=== PATIENT | female | born 1980 | race African-American/Black ===

== ENCOUNTER 2025-01-21 19:16 | Observation (INO) | payer MEDICARE, MEDICAID, SELFPAY ==
--- NOTE | ~2025-01-21 | CT_ITS ---
EXAMINATION: CT abdomen pelvis w con DATE: 01/21/2025 21:21 INDICATION: Abdominal pain. TECHNIQUE: Computed tomography (CT) of the abdomen and pelvis was performed with 100 cc contrast intravenous contrast. Automated exposure control and iterative reconstruction technique were employed. The dose-length product was 987.59 mGy-cm. COMPARISON: None. FINDINGS: Lung bases do not show acute findings. No focal lesions of liver and spleen. Gallbladder, bile ducts, pancreas do not show acute findings. Kidneys do not show calculi are obstruction. No evidence of small bowel obstruction. Moderate fecal impaction of the proximal colon and the cecum. Appendix is noted in the pelvic position measuring less than 6 mm in diameter. No inflammatory changes. Bulky uterus. Suspected endometrial thickening. No adnexal mass or fluid collections are seen. No acute findings of lumbar spine. Severe degenerative disc disease at L5-S1 level. Suspected disc herniation to the left of the midline. IMPRESSION: 1. No acute findings in the upper abdomen and pelvis. Mild fecal impaction of proximal colon. 2. Bulky uterus with endometrial thickening suspected. Please correlate with clinical history and possible pelvic ultrasound. 3. Significant degenerative disc disease at L5-S1 level with possible disc protrusion. Reviewed, dictated and finalized at location T. ESTATE INVESTMENT ANALYST IMPRESSION: 1. No acute findings in the upper abdomen and pelvis. Mild fecal impaction of p roximal colon. 2. Bulky uterus with endometrial thickening suspected. Please correlate with cl inical history and possible pelvic ultrasound. 3. Significant degenerative disc disease at L5-S1 level with possible disc prot rusion.
[2025-01-21 19:23] VITALS: BP 146/95; PULSE 112; RESP 18; TEMP 36.3; O2SAT 99
[2025-01-21 19:52] LABS: Add Urine Microscopic? NO; Appearance Urine Clear (Clear); Glucose Urine UA Negative (Negative); Leukocyte Esterase Ur Negative LEU/UL (Negative); Nitrate Urine Negative (Negative); Specific Grav Ur 1.028 (1.001-1.035)
[2025-01-21 20:05] LABS: BEDSIDEPREGUCG Negative (Negative)
[2025-01-21 20:09] LABS: Hematocrit 39.3 % (37.0-47.0); Hemoglobin 12.9 g/dL (12.0-15.0); Immature Granulocyte Percent A 0.4 % (0-0.5); Lymphocytes Absolute Auto 1.84 K/mm3 (0.9-3.2); Mean Corpuscular HGB Conc 32.8 g/dl (32-36); Mean Corpuscular Hemoglobin 27.6 pg (26-34); Mean Corpuscular Volume 84.0 fl (80-100); Nucleated Red Blood Cells Absolute Auto 0.000 K/mm3 (0.0-0.012); Nucleated Red Blood Cells Perc 0.0 % (0.0-0.2); Platelet Count Result 221 k/mm3 (150-375); Red Blood Count 4.68 M/mm3 (4.2-5.4); White Blood Count 11.3 K/mm3 (4.5-10.0)
[2025-01-21 20:22] LABS: Alanine Aminotransferase 23 U/L (6-35); Albumin Level 4.5 g/dL (3.5-5.1); Alkaline Phosphatase 67 U/L (38-126); Anion Gap 5 mmol/L (4-12); Aspartate Amino Transferase 28 U/L (14-36); Bilirubin,Total 0.4 mg/dL (0.2-1.3); Blood Urea Nitrogen 19 mg/dL (7-17); Calcium 9.1 mg/dL (8.4-10.2); Carbon Dioxide 23 mmol/L (22-30); Chloride 104 mmol/L (98-107); Estimated CRCL calculation 94 ml/min; Estimated Glomerular Filt Rate > 60; Glucose 91 mg/dL (65-110); Lipase 97 U/L (23-300); Potassium 4.1 mmol/L (3.4-5.0); Sodium 132 mmol/L (137-145); Total Protein 8.1 g/dL (6.3-8.2)
--- NOTE | 2025-01-21 20:24 | ED_ITS ---
HPI - Abdominal Pain General Chief Complaint: Abdominal Pain Stated Complaint: Abd Pain/Pelvic pain/Vaginal bleeding Time Seen by Provider: 01/21/25 20:14 Source: patient Mode of arrival: ambulatory Limitations: no limitations History of Present Illness HPI narrative: Patient is a 44-year-old female presents to the emergency department complaining abdominal pain, nausea, vaginal bleeding. Patient notes she started to have abdominal pain in the suprapubic and left lower quadrant region started around 930 this morning, was overall constant for a few hours, seems to be letting up and then returning in this evening, admits to associated nausea, denies any history is pain in the past. That is Sunday she was having intercourse and started to have a lot of vaginal bleeding with that and passed blood clots. The vaginal bleeding still present but seems to be much improved over the past 2 days with small amounts. Patient notes her last menstrual period was at the end of December and she is supposed to have any vaginal bleeding or of this time has she usually gets her menses once a month. Patient also admits to being constipated. Patient admits to seeing a doctor [facility], last was back in 15 years ago and had a , notes that she has been having workup under uterus is there is a scar and possible opening there. Denies any history of any sexually transmitted infections. Related Data Allergies Allergy/AdvReac Type Severity Reaction Status Date / Time Penicillins Allergy Intermediate Rash Verified 01/21/25 20:30 Review of Systems 2 Review of Systems: A 10 system review of systems was completed on the patient and is negative except for what is stated in the HPI. Nursing and ancillary documentation was reviewed. Exam 2 Narrative: CONST: No acute distress. Well nourished. HENMT: Head is normocephalic and atraumatic. Moist mucous membranes. No posterior oropharynx erythema. EYES: No scleral icterus. No conjunctival injection or pallor. PERRL. NECK: No meningeal signs. RESP: Able to speak in full sentences. Normal respiratory effort. CTAB. CARDIO: Borderline tachycardic rate. Regular rhythm. 2+ DP and radial pulses bilaterally. GI: Nondistended. mild tenderness palpation in the suprapubic and left lower quadrant and right lower quadrant. No rebound or guarding or rigidity. Soft. : No CVA tenderness to palpation. SKIN: No rashes or lesions noted on exposed skin. NEURO: Oriented x3. Moves all extremities. EXTREM/MSK/BACK: No pedal edema. PSYCH: Normal affect. Course Vital Signs Vital signs: Vital Signs Temperature 97.4 F L 01/21/25 19:23 Pulse Rate 112 H 01/21/25 19:23 Respiratory Rate 18 01/21/25 19:23 Blood Pressure 146/95 H 01/21/25 19:23 Pulse Oximetry 99 01/21/25 19:23 Oxygen Delivery Room Air 01/21/25 19:23 Temperature 97.4 F L 01/21/25 19:23 Pulse Rate 109 H 01/21/25 20:32 Respiratory Rate 18 01/21/25 20:32 Blood Pressure 152/95 H 01/21/25 20:32 Pulse Oximetry 100 01/21/25 20:32 Oxygen Delivery Room Air 01/21/25 19:23 [facility] Narrative Medical decision making narrative: Patient presents with the above complaint. Initial vitals are remarkable for Tachycardia. Physical examination as noted above. Plan discussed: laboratory analysis, imaging. Patient ordered IVF, analgesia, antiemetic, continuous cardiac monitoring, continuous pulse oximetry. I spoke with Gynecology on-call Dr. Anthony who notes to start the patient on IV antibiotics, admit under him. Differential Diagnosis Differential Diagnosis: ovarian cyst, ovarian torsion, UTI, ureterolithiasis, endometritis, pelvic inflammatory disease, ectopic , constipation, diverticulitis, bowel obstruction, pancreatitis, Metabolic derangement, electrolyte derangement. Lab Data [facility] Lab Attestation statement: I personally reviewed the patient's lab results. Lab results narrative: CBC reveals a white blood cell count 11.3. Coags are within normal limits. Comprehensive metabolic panel reveals sodium 132, BUN of 19. TSH is 2.07. Serum HCG is negative. CRP is 2.4. Magnesium is 1.9. Lactic acid is 1.0. Lipase 97. Urinalysis is without any significant abnormalities. test is negative. Trichomonas vaginalis is not detected. 01/21/25 20:02 01/21/25 20:02 Labs: Lab Results 01/21/25 01/21/25 01/21/25 Range/Units 19:45 20:01 20:02 WBC 11.3 H (4.5-10.0) K/mm3 RBC 4.68 (4.2-5.4) M/mm3 Hgb 12.9 (12.0-15.0) g/dL Hct 39.3 (37.0-47.0) % MCV 84.0 (80-100) fl MCH 27.6 (26-34) pg MCHC 32.8 (32-36) g/dl RDW 12.9 (11.5-14.5) % Plt Count 221 (150-375) k/mm3 MPV 11.2 H (7.4-10.4) fl Immature Gran % (Auto) 0.4 (0-0.5) % Neut % (Auto) 77.0 H (45.5-73.1) % Lymph % (Auto) 16.3 L (18.3-44.2) % Bacon % (Auto) 5.9 (2.6-8.5) % Eos % (Auto) 0.2 (0-4.4) % Baso % (Auto) 0.2 (0.2-1.2) % Lymph # (Auto) 1.84 (0.9-3.2) K/mm3 Bacon # (Auto) 0.7 H (0.1-0.6) K/mm3 Eos # (Auto) 0.0 (0-0.3) K/mm3 Baso # (Auto) 0.0 (0.0-0.1) K/mm3 Abs Immat Gran (auto) 0.05 H (0.00-0.031) K/mm3 Absolute Neuts (auto) 8.7 H (1.3-6.7) K/mm3 Absolute Nucleated RBC 0.000 (0.0-0.012) K/mm3 Nucleated RBC % 0.0 (0.0-0.2) % PT 12.3 (11.1-14.7) Seconds INR 0.9 APTT 25.4 (22.3-36.8) Seconds Sodium 132 L (137-145) mmol/L Potassium 4.1 (3.4-5.0) mmol/L Chloride 104 (98-107) mmol/L Carbon Dioxide 23 (22-30) mmol/L Anion Gap 5 (4-12) mmol/L BUN 19 H (7-17) mg/dL Creatinine 0.77 (0.7-1.0) mg/dL Estim Creat Clear Calc 94 ml/min Estimated GFR > 60 (59 - ) Glucose 91 (65-110) mg/dL Lactic Acid (0.7-2.0) mmol/L Calcium 9.1 (8.4-10.2) mg/dL Magnesium 1.9 (1.6-2.3) mg/dL Total Bilirubin 0.4 (0.2-1.3) mg/dL AST 28 (14-36) U/L ALT 23 (6-35) U/L Alkaline Phosphatase 67 (38-126) U/L C-Reactive Protein 2.4 H (<1.0) mg/dL Total Protein 8.1 (6.3-8.2) g/dL Albumin 4.5 (3.5-5.1) g/dL Lipase 97 (23-300) U/L TSH (Reflex) 2.070 (0.465-4.68) uIU/mL Serum HCG, Qual Negative Urine Color Yellow (Yellow) Urine Appearance Clear (Clear) Urine pH 8.0 (5.0-9.0) Ur Specific [place] 1.028 (1.001-1.035) Urine Protein Negative (Negative) mg/dL Urine Glucose (UA) Negative (Negative) mg/dL Urine Ketones Negative (Negative) mg/dL Ur Blood (Man) Negative (Negative) Urine Nitrate Negative (Negative) Urine Bilirubin Negative (Negative) Urine Urobilinogen 1.0 (<2.0) mg/dL Leukocyte Esterase Rfl Negative (Negative) HUBER/UL POC Urine HCG, Qual (Negative) C. trachomatis (PCR) Pending N. gonorrhoeae (PCR) Pending T. vaginalis (PCR) Not detected (NOT DETECTE) Blood Type Antibody Screen 01/21/25 01/21/25 Range/Units 20:03 20:49 WBC (4.5-10.0) K/mm3 RBC (4.2-5.4) M/mm3 Hgb (12.0-15.0) g/dL Hct (37.0-47.0) % MCV (80-100) fl MCH (26-34) pg MCHC (32-36) g/dl RDW (11.5-14.5) % Plt Count (150-375) k/mm3 MPV (7.4-10.4) fl Immature Gran % (Auto) (0-0.5) % Neut % (Auto) (45.5-73.1) % Lymph % (Auto) (18.3-44.2) % Bacon % (Auto) (2.6-8.5) % Eos % (Auto) (0-4.4) % Baso % (Auto) (0.2-1.2) % Lymph # (Auto) (0.9-3.2) K/mm3 Bacon # (Auto) (0.1-0.6) K/mm3 Eos # (Auto) (0-0.3) K/mm3 Baso # (Auto) (0.0-0.1) K/mm3 Abs Immat Gran (auto) (0.00-0.031) K/mm3 Absolute Neuts (auto) (1.3-6.7) K/mm3 Absolute Nucleated RBC (0.0-0.012) K/mm3 Nucleated RBC % (0.0-0.2) % PT (11.1-14.7) Seconds INR APTT (22.3-36.8) Seconds Sodium (137-145) mmol/L Potassium (3.4-5.0) mmol/L Chloride (98-107) mmol/L Carbon Dioxide (22-30) mmol/L Anion Gap (4-12) mmol/L BUN (7-17) mg/dL Creatinine (0.7-1.0) mg/dL Estim Creat Clear Calc ml/min Estimated GFR (59 - ) Glucose (65-110) mg/dL Lactic Acid 1.0 (0.7-2.0) mmol/L Calcium (8.4-10.2) mg/dL Magnesium (1.6-2.3) mg/dL Total Bilirubin (0.2-1.3) mg/dL AST (14-36) U/L ALT (6-35) U/L Alkaline Phosphatase (38-126) U/L C-Reactive Protein (<1.0) mg/dL Total Protein (6.3-8.2) g/dL Albumin (3.5-5.1) g/dL Lipase (23-300) U/L TSH (Reflex) (0.465-4.68) uIU/mL Serum HCG, Qual Urine Color (Yellow) Urine Appearance (Clear) Urine pH (5.0-9.0) Ur Specific [place] (1.001-1.035) Urine Protein (Negative) mg/dL Urine Glucose (UA) (Negative) mg/dL Urine Ketones (Negative) mg/dL Ur Blood (Man) (Negative) Urine Nitrate (Negative) Urine Bilirubin (Negative) Urine Urobilinogen (<2.0) mg/dL Leukocyte Esterase Rfl (Negative) HUBER/UL POC Urine HCG, Qual Negative (Negative) C. trachomatis (PCR) N. gonorrhoeae (PCR) T. vaginalis (PCR) (NOT DETECTE) Blood Type B Positive Antibody Screen Negative Imaging Data Radiologist's impression: ITS Impressions Abdomen/Pelvis CT 01/21/25 21:22 IMPRESSION: 1. No acute findings in the upper abdomen and pelvis. Mild fecal impaction of proximal colon. 2. Bulky uterus with endometrial thickening suspected. Please correlate with clinical history and possible pelvic ultrasound. 3. Significant degenerative disc disease at L5-S1 level with possible disc protrusion. ECG Data EKG #1: Attestation: I personally reviewed and interpreted this ECG as follows: ECG completion date: 01/21/25 ECG completion time: 21:06 Interpretation: Rate of 101, rhythm is sinus tachycardia with short OK interval, no ST elevations or depressions, no old EKG on file for comparison. Discharge Plan Discharge Clinical Impression: Sepsis, Pelvic pain, Vaginal bleeding Patient Disposition: Still a Patient Condition: Stable Instructions: Antibiotic Form Patient Language: Uzbek Follow-up/Referrals: PHYSICIAN NOT ON STAFF,NONSTAFF [Primary Care Provider] Time of Disposition: 22:14
--- NOTE | 2025-01-21 20:25 | ECG_ITS ---
Test Date: 2025-01-21 21:06:40 Measurements Intervals [place] Rate: 101 P: 28 AR: 112 QRS: 31 QRSD: 77 T: 43 QT: 352 QTc: 457 Interpretive Statements SINUS TACHYCARDIA WITH SHORT AR INTERVAL EARLY PRECORDIAL R/S TRANSITION BORDERLINE ECG No previous ECG available for comparison Electronically Signed On 01-22-2025 06:09:51 [employer] by Desean Choudhury D.O.
[2025-01-21 20:32] VITALS: BP 152/95; PULSE 109; RESP 18; O2SAT 100
[2025-01-21 20:46] LABS: SPREG INTERNAL CONTROL Positive; Serum Qual hCG Negative
[2025-01-21 20:51] LABS: CRP 2.4 mg/dL (<1.0); Magnesium 1.9 mg/dL (1.6-2.3)
[2025-01-21] MEDS: ONDANSETRON INJ 4 MG/2 ML VIAL IV PUSH (20:56)
[2025-01-21] MEDS: MORPHINE SULFATE (*CRX) 4 MG/ML INJ IV PUSH (20:56)
[2025-01-21] MEDS: SODIUM CHLORIDE 0.9% IV 1,000 ML 999 ML IV CONT ×2 (20:56)
[2025-01-21] MEDS: SODIUM CHLORIDE 0.9% IV 500 ML 999 ML IV CONT (20:56)
[2025-01-21 21:05] LABS: INR 0.9; Prothrombin Time 12.3 Seconds (11.1-14.7)
[2025-01-21 21:06] LABS: Partial Thromboplastin Time 25.4 Seconds (22.3-36.8)
[2025-01-21 21:21] LABS: Thyroid Stimulating Hormone Reflex 2.070 uIU/mL (0.465-4.68)
--- OUTSIDE RECORDS SUMMARY | 2025-01-21 21:21 | XMS_ITS | Clinical Summary ---
Author Organization [facility] Address [address] [place] [address] Care Team Providers Care Online Merchandiser Name Role Phone Sola López SMALL MACHINE BINDERY OPERATOR-HAT LINER Primary Care Provider + Source Comments [facility],non-owned Affiliates and Associated Physician Practices is amultiple site organization consisting of ambulatory clinics and hospital sitesin [place], [place], [place] and [place]. This disclosure is being madepursuant to the Care Everywhere program and may not contain all information available regarding this patient. Last updated 17.[facility] Allergies No known active allergies Social History Tobacco Use Types Packs/Day Years Used Date Smoking Tobacco: Never Assessed Comments Unknown Sex and Gender Information Value Date Recorded Sex Assigned at Not on file Legal Sex Female 6:11 PM CUFF SETTER Gender Identity Not on file Sexual Orientation Not on file Plan of Treatment Health Maintenance Due Date Last Done Comments LIPID TESTING 1982 MAMMOGRAM 1982 HIV SCREENING 1997 HEPATITIS C SCREENING 11/04/2000 DTAP/TDAP/TD VACCINES (1 - Tdap) 2001 HEPATITIS B VACCINE (1 of 3 - 19+ 3-dose series) 2001 PAP SMEAR 11/10/2003 HPV VACCINE (1 - 3-dose SCDM series) 2009 DEPRESSION SCREENING 02/13/2024 MEDICARE AWV CALENDAR YEAR 2024 COVID-19 VACCINE (1 - 2024-2 6 season) 2024 INFLUENZA VACCINE (#1) 2024 ZOSTER VACCINE (1 of 2) 2032 HIB VACCINE Aged Out No longer eligi ble based on patient's age to complete this topic MENINGOCOCCAL (Group B) VACC INE SHARED DECISION-MAKING Aged Out No longer eligibl e based on patient's age to complete this topic MENINGOCOCCAL GROUPS A/C/Y/W VACCINE Aged Out No longer eligible b ased on patient's age to complete this topic PNEUMOCOCCAL VACCINE Aged Out No long er eligible based on patient's age to complete this topic Insurance MEDICARE MEDICAID - OUT OF [facility] [place] [address] MEDICARE MEDICAID - [place] [facility] Care Teams Online Merchandiser Relationship Specialty Start Date End Date Sola López APRN-TRACEE PCP - General Nurse Practitioner 04/06/20
--- OUTSIDE RECORDS SUMMARY | 2025-01-21 21:21 | XMS_ITS | Encounter Summary ---
Author Organization [facility] Address [address] [place] [address] Phone Care Team Providers Care Baffle Mounter Name Role Phone Citlalli Santana NP Primary Care Provider [phone] Stephanie Grimaldo MD Unavailable [phone] Encounter Details Date Type Department Care Team (Latest Contact Info) Description 12/25/2024 Results Follow-Up [facility] Medicine Reproductive Endocrinology [address] [address] Digna Jimenez MD [address] [address] MRI Pelvis W WO Contrast Social History Tobacco Use Types Packs/Day Years Used Date Smoking Tobacco: Former Cigars Smokeless Tobacco: Never Alcohol Use Standard Drinks/Week Comments Yes 0 (1 standard drink = 0.6 oz pur e alcohol) occasionally Humiliation, Afraid, Rape, and Kick questionnair e Answer Date Recorded Within the last year, have y ou been afraid of your partner or ex-partner? No 02/11/2024 Within the last year, have y ou been humiliated or emotionally abused in other ways by your partner or ex-partner? No Within the last year, have y ou been kicked, hit, slapped, or otherwise physically hurt by your partner or ex-partner? No 02/11/2024 Within the last year, have y ou been raped or forced to have any kind of sexual activity by your partner or ex-partner? No 02/11/2024 AUDIT-C Answer Date Recorded Q1: How often do you have a drink containing alc ohol? 2-4 times a month 02/11/2024 Q2: How many drinks containi ng alcohol do you have on a typical day when you are drinking? 3 or 4 02/11/2024 Q3: How often do you have si x or more drinks on one occasion? Monthly 02/11/2024 PHQ-2 Answer Date Recorded PHQ-2 Total Score 0 02/11/2024 Hunger Vital Sign Answer Date Recorded Within the past 12 months, y ou worried that your food would run out before you got the money to buy more. Never true 09/03/19 25 Within the past 12 months, t he food you bought just didn't last and you didn't have money to get more. Never true 09/02/2024 Personal Safety Answer Date Recorded Have you ever been in or are you currently in a harmful physical or emotional relationship or is someone making you feel afraid or unsafe? Denies 12/04/2024 Comments No Sex and Gender Information Value Date Recorded Sex Assigned at Not on file Legal Sex Female 4:28 PM DIRECTOR OF GLOBAL SALES Gender Identity Female 03/20/2023 12:24 PM DIRECTOR OF GLOBAL SALES Sexual Orientation Straight 03/20/2023 12 :24 PM DIRECTOR OF GLOBAL SALES documented as of this encounter Plan of Treatment Upcoming Encounters Date Type Department Care Team (Latest Contact Info) Description 03/06/2025 12:13 PM DIRECTOR OF GLOBAL SALES Hospital Encounter [facility] [address] [place] [id number] Digna Jimenez MD [id number] [address] 03/06/2025 12:13 PM DIRECTOR OF GLOBAL SALES - 03/06/2025 2:07 PM DIRECTOR OF GLOBAL SALES Surgery [facility] [address] [place] [id number] Digna Jimenez MD [phone] [address] HYSTEROSCOPIC ISTHMOCELE REPAIR Scheduled Procedures Name Priority Associated Diagnoses Date/Ti me HYSTEROSCOPY OPERATIVE Abnormal uterine bleeding (AUB) 03/06/2025 12:13 PM DIRECTOR OF GLOBAL SALES EXAM UNDER ANESTHESIA Abnormal uterine bleeding (AUB) 03/06/2025 12:13 PM DIRECTOR OF GLOBAL SALES documented as of this encounter Visit Diagnoses Not on filedocumented in this encounter Care Teams Baffle Mounter Relationship Specialty Start Date End Date Citlalli Santana NP [address] [place] [address] PCP - General Grill Chef 09/30/24 Stephanie Grimaldo MD [address] JIMENEZ [address] [place], [place] [address] [address] Conference Director Obstetrics and Gynecology 09/30/24 documented as of this encounter
--- OUTSIDE RECORDS SUMMARY | 2025-01-21 21:21 | XMS_ITS | Clinical Summary ---
Author Organization [facility] Address [address] [place] [address] Care Team Providers Care Triage Registered Nurse Name Role Phone Citlalli Santana NP Primary Care Provider [phone] Stephanie Grimaldo MD Unavailable [phone] Allergies Active Allergy Reactions Criticality Noted Date Comments Amoxicillin Other (See comments) Low 09/23/2020 CHANGES IN VAGINAL pH Poison Alicia Extract Rash Medium 08/26/2021 Poison Sumac Extract Rash Medium 08/26/2021 Medications ibuprofen (ADVIL,MOTRIN) 600 mg tablet Take 1 tablet (600 mg total) by mouth every 6 (six) hours as needed for pain 100 tablet 09/29/19 23 Active iron sabino barth-FA-B-C# 12-succ 65 mg-65 mg -1,000 mcg (24) tablet Take by mouth Per patient daily Active vit 68-szug-hmniw-dha 27mg iron- 800 mcg-250 mg capsule Take by mouth Per patient daily Active folic acid (FOLVITE) 1 mg tablet Take 1 tablet (1 mg total) by mouth daily Active cholecalciferol (VITAMIN D-3) 5,000 unit capsule Take 1 capsule (5,000 Units total) by mouth daily Active ferrous sulfate 325 mg (65 mg of elemental iron) tabletIndications :Iron Deficiency Anemia Take 1 tablet (325 mg total) by mouth daily with breakfast 30 tablet 11 02/14/19 25 026 Active naproxen (NAPROSYN) 500 mg tablet Take 1 tablet (500 mg total) by mouth 2 (two) times a day as needed for pain Take with food. 30 tablet 12/05/19 25 Active levothyroxine (SYNTHROID) 25 mcg tablet Take 1 tablet (25 mcg total) by mouth display mechanic before breakfast 30 tablet 2 01/16/20 25 Active norethindrone (MICRONOR) 0.35 mg tabletIndications : Contraception Take 1 tablet (0.35 mg total) by mouth daily 28 tablet 5 01/16/20 25 026 Active progesterone (PROMETRIUM) 200 mg capsule TAKE 1 CAPSULE BY MOUTH DAILY AT BEDTIME 01/03/20 22 025 Discontinued Active Problems Problem Noted Date Diagnosed Date Abnormal uterine bleeding (AUB) 01/15/2025 Hair loss 02/11/2024 Assessment & Plan (02/11/2024 11:47 AM ART MODEL): New problem: Diffuse, but right>left Had tsh with pcp recently To tyrese, cbc, iron studies To biotin Encounter for preconception consultation 023 Overview (01/15/2023): She is on mvi. No family history of neural tube defects or other defects. The patient was encouraged to be a healthy weight. The patient was encouraged to be in a healthy relationship She was encouraged to not use tobacco or marijuana. Varicella- she had chicken pox. To varicella and rubella titers- she is not interested in vaccination even if she was found to be nonimmune after discussion of what could happen if she was to get it during . Carrier screening discussed she would like to do. To routine health maintenance labs- she is following with pcp. Chol is high. Blood glucose is good. Assessment & Plan (02/11/2024 11:49 AM ART MODEL): To go back to [facility]. Will refer to [facility] Will hold on labs and usg as I am sure they will do it there. Assessment & Plan (01/15/2023 9:42 AM ART MODEL): She is on mvi. No family history of neural tube defects or other defects. The patient was encouraged to be a healthy weight. The patient was encouraged to be in a healthy relationship She was encouraged to not use tobacco or marijuana. Varicella- she had chicken pox. To varicella and rubella titers- she is not interested in vaccination even if she was found to be nonimmune after discussion of what could happen if she was to get it during . Carrier screening discussed she would like to do. To routine health maintenance labs- she is following with pcp. Chol is high. Blood glucose is good. Well woman exam 01/15/2023 Overview (02/11/2024): Lab: Pap:all normal Labs with pcp- due [place]:due. She wants to postpone as she is afraid of it causing problems. Colonoscopy: BMD: Assessment & Plan (02/11/2024 11:50 AM ART MODEL): Pap done. RTO 12m. I will send the results to the portal. If she has not heard in a week, to call the office. To rpr, hep b and c and HIV Assessment & Plan (01/15/2023 5:24 PM ART MODEL): Pap done. RTO 12m. I will send the results to the portal. If she has not heard in a week, to call the office. DUB (dysfunctional uterine bleeding) 01/15/2023 Assessment & Plan (01/15/2023 5:25 PM ART MODEL): To cbc She may be a candidate for lysteda. Resolved Problems Problem Noted Date Diagnosed Date Resolved Date Poison alicia dermatitis 08/26/20212022 Encounters Date Type Department Care Team Description 01/15/2025 9:50 AM ART MODEL Telemedicine [facility] Reproductive Endocrinology [address] [place] [address] [place] [phone] Digna Jimenez MD Dysmenorrhea (Primary Dx) 12/25/2024 Results Follow-Up [facility] Reproductive Endocrinology [address] [place] [phone] Digna Jimenez MD MRI Pelvis W WO Contrast 12/19/2024 8:45 AM ART MODEL - 12/19/2024 11:59 PM ART MODEL Hospital Encounter [facility] [address] [place] [address] Encounter for fertility testing Discharge Disposition: Discharge to home or self care 12/18/2024 6:35 PM ART MODEL - 12/18/2024 11:59 PM ART MODEL Hospital Encounter [facility] [address] [place] [phone] Pelvic and perineal pain Discharge Disposition: Discharge to home or self care 12/11/2024 Telephone [facility] Medicine Reproductive Endocrinology [address] [place] [address] [place] [phone] Digna Jimenez MD MG/cd 1 G scheduled/doxy to be sent 12/04/2024 4:20 PM CDT - 12/04/2024 4:26 PM CDT Emergency [facility] Emergency Department [address] [place] [address] Richi Frye MD Strain of lumbar region, initial encounter (Primary Dx); Degeneration of intervertebral disc of lumbar region, unspecified whether pain present; Left ovarian cyst Discharge Disposition: Discharge to home or self care 11/28/2024 1:04 PM CDT - 11/28/2024 11:59 PM CDT Hospital Encounter [address] [address] Recurrent loss without current ; Polycystic ovaries; Personal history of other endocrine, nutritional and metabolic disease Discharge Disposition: Discharge to home or self care 11/28/2024 11:50 AM CDT Procedure visit [facility] Medicine Reproductive Endocrinology [address] [place] [address] [place] [phone] Digna Jimenez MD Encounter for fertility testing (Primary Dx); Pelvic and perineal pain 11/28/2024 11:30 AM CDT Ancillary Procedure [facility] Medicine Obstetrics and Gynecology [address] [place] [address] [address]rd Floor [address] [place] [phone] Encounter for fertility testing 11/28/2024 11:20 AM CDT Clinical Support [facility] Reproductive Endocrinology Lab [address] [place] [phone] Polycystic ovaries (Primary Dx); Recurrent loss without current ; Fertility testing; Personal history of other endocrine, nutritional and metabolic disease 11/18/2024 Telephone [facility] Reproductive Endocrinology [address] [place] [address] [place] [phone] Digna Jimenez MD MG/cd1 10-6 11/12/2024 3:10 PM CDT Telemedicine [facility] Reproductive Endocrinology [address] [place] [address] [place] [phone] Digna Jimenez MD Encounter for fertility testing (Primary Dx) from Last 3 Months Surgical History Surgery Date Site/Laterality Comments SECTION 11/13/2006 Emergency TUBAL LIGATION 02/12/2009 - 02/11/2010 SECTION 08/12/2009 Repeat OTHER SURGICAL HISTORY 10/28/2019 BTL reversal Medical History Medical History Date Comments Hyperlipidemia Asthma Uterine fibroids affecting Family History Medical History Relation Name Comments Hypertension Father Lung cancer Father stage 4 primary Prostate cancer Father no mets Diabetes Maternal Grandmother Hypertension Mother Stomach cancer Paternal Grandmother Cancer Neg Hx No colon, breas t or glass washer and carrier cancer cmt dad as above 02/01/24 Relation Name Status Comments Father Maternal Grandmother Mother Paternal Grandmother Social History Tobacco Use Types Packs/Day Years Used Date Smoking Tobacco: Former Cigars Smokeless Tobacco: Never Tobacco Cessation:Counseling Given: Not Answered Alcohol Use Standard Drinks/Week Comments Yes 0 [...] on file Legal Sex Female 4:28 PM ART MODEL Gender Identity Female 03/20/2023 12:24 PM ART MODEL Sexual Orientation Straight 03/20/2023 12 :24 PM ART MODEL Obstetrics History Para Term AB IAB SAB Ectopic Multiple Livin g Live Births 4 2 2 2 2 2 2 Date Outcome GA Total Labor Labor/2nd/3rd Weight Sex Type Anes PTL Neha A1 A5 Name Clin SAB SAB 007 Term 2.722 kg (6 lb) M C-Sec tion Epidur al N Livin g Delivery Location:Other 010 Term 3.175 kg (7 lb) F C-Sec tion Epidur al Livin g Delivery Location:Other Last Filed Vital Signs Vital Sign Reading Time Taken Comments Blood Pressure 137/94 12/04/2024 3:49 PM CDT Pulse 64 12/04/2024 3:49 PM CDT Temperature 36.7 C (98 F) 12/04/2024 1:04 PM CDT Respiratory Rate 18 12/04/2024 1:04 PM CDT Oxygen Saturation 97% 12/04/2024 3:49 PM CDT Inhaled Oxygen Concentration - - Weight 97.5 kg (215 lb) 12/18/2024 7:25 PM ART MODEL Height 162.6 cm (5' 4) 12/18/2024 7:25 PM ART MODEL Body Mass Index 36.9 12/18/2024 7:25 PM ART MODEL Plan of Treatment Upcoming Encounters Date Type Department Care Team (Latest Contact Info) Description 03/06/2025 12:13 PM ART MODEL Hospital Encounter [facility] Operating Room [address] [place] [phone] Digna Jimenez MD [address] [phone] 03/06/2025 12:13 PM ART MODEL - 03/06/2025 2:07 PM ART MODEL Surgery [facility] Operating Room [address] [place] [address] Digna Jimenez MD [address] [id number] [place], [place] [phone] HYSTEROSCOPIC ISTHMOCELE REPAIR Scheduled Procedures Name Priority Associated Diagnoses Date/Ti me HYSTEROSCOPY OPERATIVE Abnormal uterine bleeding (AUB) 03/06/2025 12:13 PM ART MODEL EXAM UNDER ANESTHESIA Abnormal uterine bleeding (AUB) 03/06/2025 12:13 PM ART MODEL Health Maintenance Due Date Last Done Comments Breast Cancer Screening-Mammogram 1982 DTaP/Tdap/Td Vaccine (1 - Tdap) 1993 Varicella Vaccines (1 of 2 - 13+ 2-dose series) 11/10/1995 Hepatitis B Screening 2000 HPV Vaccines (1 - 3-dose SCD M series) 2009 Influenza Vaccine (#1) 2024 04/27/2022 Cervical Cancer Screening 02/10/20252023, 02/11/2024, 01/15/2023 Depression Screening 02/10/2025 02/11/2024, 01/15/2023 Regular Well Visit/Exam 18-64 02/10/2025 02/11/2024 Hepatitis C Screening Completed 02/11/2024 Pneumococcal vaccine <65 Aged Out No longer eligible based on patient's age to complete this topic Goals Goal Patient Goal Type Associated Problems Recent Progress Patient-Stated? Author Autogenera yesica Goal Care Plan Autogenerated Problem No Link, Dorie Christopher, Dania Procedures Procedure Name Priority Date/Time Associated Diagnosis Comments HYSTEROSALPINGOGRAM Schedule Routine, Read Routine (OP Routine) 12/19/2024 9:50 AM ART MODEL Encounter for fertility testing MRI PELVIS W WO CONTRAST Schedule Routine, Read Routine (OP Routine) 12/18/2024 8:23 PM ART MODEL Pelvic and perineal pain POCT HCG, URINE Routine 12/18/2024 7:[address] LUMBAR SPINE WO CONTRAST ED 12/04/2024 2:57 PM CDT SONOHYSTEROGRAM Routine 11/28/2024 1:25 PM CDT Encounter for fertility testing US SONOHYSTEROGRAPHY Schedule Routine, Read Routine (OP Routine) 11/28/2024 11:09 AM CDT Encounter for fertility testing HEMOGLOBIN A1C Routine 11/28/2024 10:55 AM CDT Polycystic ovaries Personal history of other endocrine, nutritional and metabolic disease THYROID PEROXIDASE ANTIBODY Routine 11/28/2024 10:55 AM CDT Polycystic ovaries CARDIOLIPIN ANTIBODY, IGG Routine 2024 10:55 AM CDT Recurrent loss without current CARDIOLIPIN ANTIBODY, IGM Routine 2024 10:55 AM CDT Recurrent loss without current BETA 2 GLYCOPROTEIN IGM AB Routine 11/28/2024 10:55 AM CDT Recurrent loss without current BETA 2 GLYCOPROTEIN IGG AB Routine 11/28/2024 10:55 AM CDT Recurrent loss without current LUPUS ANTICOAGULANT PANEL PLUS REFLEXES Routine 11/28/2024 10:55 AM CDT Recurrent loss without current POCT HCG, URINE, BY VISUAL COLOR Routine 11/28/2024 HEPATITIS C ANTIBODY Routine 02/11/2024 12:04 PM ART MODEL Screening for STDs (sexually transmitted diseases) HIGH RISK HPV DNA DETECTION WITH GENOTYPING Routine 02/11/2024 12:04 PM ART MODEL Well woman exam from Last 3 Months or Most Recently Relevant to Health Maintenance Results * FL Hysterosalpingogram (12/19/2024 9:50 AM ART MODEL) Anatomical Region Laterality Modality Body, Pelvis N/A Radio Fluoroscop y 12/19/2024 10:3 6 AM ART MODEL Impressions 12/19/2024 1:09 PM ART MODEL Non opacification left fallopian tube which may be due to spasm vs less likely occlusion. The radiology attending physician has personally reviewed this study, and had reviewed and/or edited this written report and agrees with it. Electronically signed by: Indiana Glasgow M.D. Narrative 12/19/2024 1:09 PM ART MODEL EXAMINATION: HYSTEROSALPINGOGRAM HISTORY: 44 year old woman, on day 9 of her menstrual cycle. Diagnostic evaluation of the fallopian tubes and uterine cavity. TECHNIQUE: Using sterile technique, a speculum was inserted into the vagina and the cervix swabbed with Betadine solution. A hysterocatheter was placed and Conray 60 was injected into the uterus. Fluoroscopic images of the pelvis were obtained. The patient tolerated the procedure well without complication. Dr. Indiana Glasgow M.D., the attending radiologist, was present from the beginning to the end of the procedure. FINDINGS: Endocervical canal: The endocervical canal is normal in appearance. Uterus: The uterus is anteverted. There are slight outpouchings in the anterior lower uterine body favored to represent postsurgical changes from previous sections. Fallopian tubes: The right fallopian tube is normal in contour and there is peritoneal spillage in the right fallopian tube. The left fallopian tube is not opacified. Procedure Note Indiana Glasgow MD - 12/19/2024 EXAMINATION: HYSTEROSALPINGOGRAM HISTORY: 44 year old woman, on day 9 of her menstrual cycle. Diagnostic evaluation of the fallopian tubes and uterine cavity. TECHNIQUE: Using sterile technique, a speculum was inserted into the vagina and the cervix swabbed with Betadine solution. A hysterocatheter was placed and Conray 60 was injected into the uterus. Fluoroscopic images of the pelvis were obtained. The patient tolerated the procedure well without complication. Dr. Indiana Glasgow M.D., the attending radiologist, was present from the beginning to the end of the procedure. FINDINGS: Endocervical canal: The endocervical canal is normal in appearance. Uterus: The uterus is anteverted. There are slight outpouchings in the anterior lower uterine body favored to represent postsurgical changes from previous sections. Fallopian tubes: The right fallopian tube is normal in contour and there is peritoneal spillage in the right fallopian tube. The left fallopian tube is not opacified. IMPRESSION: Non opacification left fallopian tube which may be due to spasm vs less likely occlusion. The radiology attending physician has personally reviewed this study, and had reviewed and/or edited this written report and agrees with it. Electronically signed by: Indiana Glasgow M.D. Digna Jimenez MD IMG FLUOROSCOPY PROCEDURES Final Result * MRI Pelvis W WO Contrast (12/18/2024 8:23 PM ART MODEL) Anatomical Region Laterality Modality Pelvis N/A Magnetic Resonan ce 12/19/2024 11:2 3 AM ART MODEL Impressions 12/19/2024 11:47 AM ART MODEL 1. Subserosal and intramural uterine fibroids. No findings concerning for endometriosis. 2. Adenomyosis of the uterus. Dictated by: Brit Benitez M.D. The radiology attending physician has personally reviewed this study, and had reviewed and/or edited this written report and agrees with it. Electronically signed by: Ashu Christopher M.D. Narrative 12/19/2024 11:47 AM ART MODEL EXAMINATION: MAGNETIC RESONANCE IMAGING OF THE PELVIS WITHOUT AND WITH CONTRAST HISTORY: 44-year-old female, scar defect, chronic pelvic pain, assess for endometriosis. TECHNIQUE: MR imaging of the pelvis was performed prior to and following administration of intravenous contrast. Protocol: Pelvis Contrast: Dotarem (gadoterate) 18 mL COMPARISON: No relevant comparison examination. FINDINGS: Reproductive Organs: Uterus is anteverted. The uterus is thickened with cystic lesions of its junctional zone, consistent with adenomyosis. There are superimposed T2-hypointense, enhancing masses in the uterine myometrium and subserosa, likely representing fibroids. There are at least five total masses. Example myometrial mass measures 1.5 x 1.1 cm (3:11), while example subserosal mass measures 3.3 x 2.7 cm (4:29). These masses demonstrate variable T1 signal without significant diffusion restriction. The bilateral ovaries are follicular. There is a hemorrhagic left ovarian lesion, likely a corpus luteum cyst (4:24, 5:18). There is a defect of anterior myometrium containing hemorrhagic product (7:23, 6:19), probably corresponding to Caesarean section defect. There are Nabothian cysts of the cervix. Bowel: No bowel abnormality. Bladder: Decompressed. Lymph nodes: No pathologic lymphadenopathy. Scattered bilateral inguinal lymph nodes measuring up to 1.0 cm Vasculature: No vascular involvement of masses as described above. Bones: No abnormal bony findings. Procedure Note Ashu Christopher MD PhD - 12/19/2024 EXAMINATION: MAGNETIC RESONANCE IMAGING OF THE PELVIS WITHOUT AND WITH CONTRAST HISTORY: 44-year-old female, scar defect, chronic pelvic pain, assess for endometriosis. TECHNIQUE: MR imaging of the pelvis was performed prior to and following administration of intravenous contrast. Protocol: Pelvis Contrast: Dotarem (gadoterate) 18 mL COMPARISON: No relevant comparison examination. FINDINGS: Reproductive Organs: Uterus is anteverted. The uterus is thickened with cystic lesions of its junctional zone, consistent with adenomyosis. There are superimposed T2-hypointense, enhancing masses in the uterine myometrium and subserosa, likely representing fibroids. There are at least five total masses. Example myometrial mass measures 1.5 x 1.1 cm (3:11), while example subserosal mass measures 3.3 x 2.7 cm (4:29). These masses demonstrate variable T1 signal without significant diffusion restriction. The bilateral ovaries are follicular. There is a hemorrhagic left ovarian lesion, likely a corpus luteum cyst (4:24, 5:18). There is a defect of anterior myometrium containing hemorrhagic product (7:23, 6:19), probably corresponding to Caesarean section defect. There are Nabothian cysts of the cervix. Bowel: No bowel abnormality. Bladder: Decompressed. Lymph nodes: No pathologic lymphadenopathy. Scattered bilateral inguinal lymph nodes measuring up to 1.0 cm Vasculature: No vascular involvement of masses as described above. Bones: No abnormal bony findings. IMPRESSION: 1. Subserosal and intramural uterine fibroids. No findings concerning for endometriosis. 2. Adenomyosis of the uterus. Dictated by: Brit Benitez M.D. The radiology attending physician has personally reviewed this study, and had reviewed and/or edited this written report and agrees with it. Electronically signed by: Ashu Christopher M.D. Digna Jimenez MD IMG MRI PROCEDURES Final R esult * POCT hCG, urine (12/18/2024 7:32 PM ART MODEL) HCG, ur, POC Negative Negative Lot Number [id number] QC Backgroud Clear Acceptable QC Control Line Acceptable Urine 12/18/2024 7:32 PM ART MODEL Lindsey Barajas MD POINT OF CARE TEST ORDERABLES Final Result * CT Lumbar Spine WO Contrast (12/04/2024 2:57 PM CDT) Anatomical Region Laterality Modality Spine N/A Computed Tomogra phy 12/04/2024 3:56 PM CDT Impressions 12/04/2024 3:56 PM CDT 1. No acute fracture lumbar spine. 2. Moderate spondylosis L5-S1 as above. Electronically signed by: Kun Mcdowell M.D. Narrative 12/04/2024 3:56 PM CDT EXAMINATION: CT LUMBAR SPINE WO CONTRAST HISTORY: Low back pain, spondyloarthropathy suspected, x-ray done. Worsening back pain over the past 2 days. TECHNIQUE: Axial images acquired through the lumbar spine without intravenous contrast. Reconstructed coronal and sagittal MPR images reviewed. All images stored on PACS. Automated exposure control was used as a dose optimization technique for this examination. COMPARISON: Prior x-rays 09/28/2022 FINDINGS: Segmentation: The lowest well-developed disc space is labeled L5-S1. No transitional anatomy. Alignment: No significant scoliosis. Minimal retrolisthesis L5 on S1. No pars defect at this level. Vertebra: There is preservation of vertebral body height. No acute fracture. There is a right-sided pars defect at L1. Margins appear smooth indicating this is chronic. None on the right. Moderate degenerative endplate change posterior inferior endplate of L5. Individual disc levels: L1-L2 demonstrates no significant osseous spinal stenosis or neural foraminal narrowing. L2-L3 demonstrates no significant osseous spinal stenosis or neural foraminal narrowing. L3-L4 to mistreats no significant osseous spinal stenosis or neural foraminal narrowing. L4-L5 demonstrates no significant osseous spinal stenosis or neural foraminal narrowing. L5-S1 demonstrates a moderate broad-based disc bulge. This in conjunction with inferior osteophyte formation of the inferior endplate of L5 results in mild anterior effacement of the thecal sac. The broad-based disc may abut the origin of the S1 nerve roots. There is mild bilateral neural foraminal narrowing. Soft tissues: Adjacent soft tissues illustrate no evidence chronic change or aneurysmal dilatation of the abdominal aorta. There is a left-sided likely ovarian cyst measuring 4.2 cm. Routine pelvic ultrasound can be obtained in 8 weeks to ensure resolution. No free fluid or inflammatory change of the visualized abdomen and pelvis on limited view. Sacroiliac joints are normal. Procedure Note Kun Mcdowell MD - 12/04/2024 EXAMINATION: CT LUMBAR SPINE WO CONTRAST HISTORY: Low back pain, spondyloarthropathy suspected, x-ray done. Worsening back pain over the past 2 days. TECHNIQUE: Axial images acquired through the lumbar spine without intravenous contrast. Reconstructed coronal and sagittal MPR images reviewed. All images stored on PACS. Automated exposure control was used as a dose optimization technique for this examination. COMPARISON: Prior x-rays 09/28/2022 FINDINGS: Segmentation: The lowest well-developed disc space is labeled L5-S1. No transitional anatomy. Alignment: No significant scoliosis. Minimal retrolisthesis L5 on S1. No pars defect at this level. Vertebra: There is preservation of vertebral body height. No acute fracture. There is a right-sided pars defect at L1. Margins appear smooth indicating this is chronic. None on the right. Moderate degenerative endplate change posterior inferior endplate of L5. Individual disc levels: L1-L2 demonstrates no significant osseous spinal stenosis or neural foraminal narrowing. L2-L3 demonstrates no significant osseous spinal stenosis or neural foraminal narrowing. L3-L4 to mistreats no significant osseous spinal stenosis or neural foraminal narrowing. L4-L5 demonstrates no significant osseous spinal stenosis or neural foraminal narrowing. L5-S1 demonstrates a moderate broad-based disc bulge. This in conjunction with inferior osteophyte formation of the inferior endplate of L5 results in mild anterior effacement of the thecal sac. The broad-based disc may abut the origin of the S1 nerve roots. There is mild bilateral neural foraminal narrowing. Soft tissues: Adjacent soft tissues illustrate no evidence chronic change or aneurysmal dilatation of the abdominal aorta. There is a left-sided likely ovarian cyst measuring 4.2 cm. Routine pelvic ultrasound can be obtained in 8 weeks to ensure resolution. No free fluid or inflammatory change of the visualized abdomen and pelvis on limited view. Sacroiliac joints are normal. IMPRESSION: 1. No acute fracture lumbar spine. 2. Moderate spondylosis L5-S1 as above. Electronically signed by: Knu Mcdowell M.D. Richi Frye MD IMG CT PROCEDURES Final Resu lt * SONOHYSTEROGRAM (11/28/2024 1:25 PM CDT) Narrative Digna Jimenez MD - 11/28/2024 1:25 PM CDT Digna Jimenez MD 11/28/2024 1:38 PM Sonohysterogram Date/Time: 11/28/2024 1:25 PM Performed by: Digna Jimenez MD Authorized by: Digna Jimenez MD Consent: Consent obtained: Verbal Consent given by: Patient Procedural risks discussed: Bleeding, infection, repeat procedure and possible continued pain Patient questions answered: yes Patient agrees, verbalizes understanding, and wants to proceed: yes Educational handouts given: yes Instructions and paperwork completed: yes Pre-procedure: Premeds: Ibuprofen Prepped with: Betadine Procedure: Cervix cleaned and prepped: yes Cervix dilated: no Tenaculum applied to cervix: no Catheter inserted: yes Uterine cavity distended with saline: yes Post-procedure: Patient observed: yes Patient observation time: 45 minutes No complications: yes Estimated blood loss (mL): 0 Post procedure instructions given to patient: yes Nothing in vagina for 2 weeks: no Patient tolerated procedure well with no complications: yes Comments: SIS Procedure Note: Verbal consent was obtained, and UPT is negative. After baseline transvaginal ultrasound was performed, a vaginal speculum was placed, and her cervix was wiped clean with betadine swabs. A balloon tipped catheter was placed to a depth of approximately 2-3 cm. The balloon inflated with 0.25 ml of normal saline, and saline was slowly instilled into the uterus. The speculum was removed. The ultrasound probe was inserted. Findings as below. Following the procedure, the probe and catheter were removed, inspected, and seen to be intact. The patient tolerated the procedure very well and she was returned to a normal position. I discussed the findings with her and she expressed good understanding. Findings: Abnormal SIS Total AFC 10. On both sagittal and transverse images: Normal appearing uterine contour, Normal uterine echotexture. The adnexa were also normal. 3-D imaging was employed with saline installation. There is a scar defect with fluid present before instillation, in lower uterine segment/upper cervix, measuring 10mm L x 6mm H, with an overlying myometrial thickness of about 4.5-5mm on thinnest measurement. There was NO fluid seen in posterior cul de sac following instillation. Unable to visualize fluid or bubbles near either adnexa. A/P 1. Fertility goals: overall, several barriers to possible future fertility (age, ?tubes) - need to reassess tubal patency (s/p tubal and reversal). Prior HSGs- last in 10/2023, showing patency. But unable to demonstrate today. Will fu with HSG - if no patency on HSG > discussed recommendation for IVF - also discussed IVF may be strongly considered as an upfront treatment. She is unsure if she has fertility coverage. Reviewed age related and ovarian reserve related prognostic factors, and concern regard overall egg quality. 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 Pain: dyspareunia and more superifical pain upon palpation of scar - plan for MRI to assess CSD and assess for any e/o endometriosis as well - MRI will help determine best route of repair for CSD (if needs LSC for tubal or endo assessment, then may be better candidate for LSC repair vs HSC if only needs bleeding improvement) Plan for hSG and MRI and meet again to discuss next steps Digna Jimenez MD 5 minutes spent Obtaining and or reviewing separately obtained history regarding their prior testing and treatments 0 minutes spent Performing a medically appropriate examination and/or evaluation 30 minutes spent Counseling and educating the patient/family/caregiver on the upcoming diagnostic testing and treatment necessary 5 minutes spent Ordering medications, tests and/or procedures 0 minutes spent Referring and Communicating with other health home care rn including PCP and or OBGYN 5 minutes spent Documenting clinical information in the electronic or other health record 5 minutes spent Care Coordination with my team to plan their upcoming testing and treatment 50 total minutes spent today us Digna Jimenez MD IN CLINIC/BEDSIDE ORDERABL ES Edited Result - Final * US Sonohysterography (11/28/2024 11:09 AM CDT) Cul de Sac No free fluid visualized VIEWPOINT Left Antral Follicle Count Antral Follicle Count < 10 mm = 3 VIEWPOINT Right Antral Follicle Count Antral Follicle Count < 10 mm = 7 VIEWPOINT Anatomical Region Laterality Modality Pelvis N/A Ultrasound 11/28/2024 11:2 2 AM CDT Impressions 12/01/2024 10:07 AM CDT Abnormal SIS Total AFC 10. On both sagittal and transverse images: Normal appearing uterine contour, Normal uterine echotexture. The adnexa were also normal. 3-D imaging was employed with saline installation. There is a scar defect with fluid present before instillation, in lower uterine segment/upper cervix, measuring 10mm L x 6mm H, with an overlying myometrial thickness of about 4.5-5mm on thinnest measurement. There was NO fluid seen in posterior cul de sac following instillation. Unable to visualize fluid or bubbles near either adnexa. Narrative Procedure Note Digna Jimenez MD - 10/20/2025 IMPRESSION: Abnormal SIS Total AFC 10. On both sagittal and transverse images: Normal appearing uterine contour,Normal uterine echotexture. The adnexa were also normal. 3-D imaging wasemployed with saline installation. There is a scar defect with fluid present before instillation, inlower uterine segment/upper cervix, measuring 10mm L x 6mm H, with anoverlying myometrial thickness of about 4.5-5mm on thinnest measurement. There was NO fluid seen in posterior cul de sac following instillation.Unable to visualize fluid or bubbles near either adnexa. us Digna Jimenez MD IMG US PROCEDURES Final Re sult * Lupus Anticoagulant Panel plus Reflexes (11/28/2024 10:55 AM CDT) PT 10.9 10.2 - 13.5 sec INR 0.96 0.90 - 1.20 [facility] Comment: Interpretive data Oral anticoagulant therapeutic ranges: Venous thromboembolism prophylaxis or treatment: 2.0-3.0 CARDIOLOGY Standard range: 2.0-3.0 High-intensity range: 2.5-3.5 Refer to indication-specific guidelines for appropriate target ranges for prosthetic heart valve replacement. Current interpretive data was last revised on 2019. aPTT 27 26 - 38 sec [facility] Comment: Interpretive Data Heparin therapeutic range: 66.0 - 100.0 seconds. Range based on correlation with therapeutic heparin activity range of 0.3 - 0.7 Units/mL. Current interpretive data was last revised on 2022. DRVVT screen ratio 1.19 0.00 - 1.20 [facility] SCT Screen Ratio 0.94 0.00 - 1.16 [facility] Lupus anticoagulant, interp Negative [facility] Comment: Interpretive data Lupus anticoagulants (LA) are acquired autoantibodies that interfere with invitro clotting in a phospholipid-dependent manner and are associated with an increased risk of thromboembolic events and complications. Routine APTT and PT reagents are not sensitive to inhibition by LA, and should not be used as screening tests. The laboratory follows ISTH 2009 guidelines (Pengo, 2009) for LA testing and interpretation: Two sensitive methods performed in parallel improve sensitivity. One activates the intrinsic pathway (Silica-APTT) and one activates the common pathway (dilute Mandeep's viper venom time - dRVVT). Each method begins with a SCREEN step, and if neither is prolonged, no further testing is performed and the interpretation is: NO LA DETECTED. If either screening test is prolonged, then additional steps are performed to provide specificity. A POSITIVE LA result occurs if either one or both tests produce a positive CONFIRM result. An INDETERMINATE result means results cannot distinguish between coagulopathy and a weak LA. Consider retesting when PT/INR is less prolonged, if clinical indicated. To support laboratory confirmation of antiphospholipid syndrome, persistence of a positive LA result should be verified by repeat testing at least 12 weeks later (Elizabeth, 2006). Prior to LA testing, the laboratory screens patient plasma samples for evidence of heparin contamination, which is neutralized prior to LA testing, and the following interfering conditions which require canceling LA testing: INR >3.0, fibrinogen < 100 mg/dl, use of direct oral or IV anticoagulants other than heparin. References: 1) Maria C V, Rosa A, [place] JH, Orryan TL, Sukhjinder M, De Татьяна PG. Update of the guidelines for lupus anticoagulant detection. J Thromb Haemost. 2009; 7:4270-5611. 2. Elizabeth S. et al. International consensus statement on an update of the classification criteria for definite antiphospholipid syndrome (APS). J Thromb Haemost. 2006; 4:295-306. Current interpretive data was last revised on 2017 Blood 11/28/2024 10:5 5 AM CDT 11/28/2024 12:15 PM CDT Narrative [facility] - 12/01/2024 10:00 AM CDT Needs STAT quality control lab tech for [facility] processing; Call [phone] to request. The LAC does not need to be frozen if [facility] lab receives it within 4 hours of draw. us Digna Jimenez MD LAB BLOOD ORDERABLES Final Result [facility] [place] [address] * Cardiolipin antibody, IgG (11/28/2024 10:55 AM CDT) Cardiolipin, IgG <1.6 <=19.9 GPL U/mL Comment: Interpretive Data Negative: <20 GPL U/mL Positive: > or = 20 GPL U/mL Anticardiolipin antibodies are associated with certain clinical events including unexplained arterial and venous thromboemboli, and unexplained morbidity. However, detection of low levels of anticardiolipin antibodies occurs in both healthy individuals and patients with co-morbidities not associated with the antiphospholipid antibody (APA) syndrome including inflammatory and infectious conditions. In order to improve specificity, the International Congress on Antiphospholipid Antibodies recommends ACL antibodies of IgG or IgM isotype present in medium or high titer (e.g. > 40 GPL, or >the 99th percentile), on two or more occasions, at least 12 weeks apart, to support a diagnosis of antiphospholipid syndrome. The cutoff for this assay was developed from data based on the 99th percentile. In addition, the International Congress on Antiphospholipid Antibodies does not recommend testing for IgA SYEDA. These results were obtained with the Embedly 2200 System. Cardiolipin IgG values obtained with different manufacturers' assay methods may not be used interchangeably. Current interpretive data was last revised on 2016. Blood 11/28/2024 10:5 5 AM CDT 11/28/2024 12:15 PM CDT us Digna Jimenez MD LAB BLOOD ORDERABLES Final Result Performing Organization Address City/State/[facility] Co de Phone Number [facility] Department [place] [address] * Beta 2 glycoprotein IgM Ab (11/28/2024 10:55 AM CDT) Beta-2 glycoprotein I, IgM 4.6 <=19.9 units/mL Comment: Interpretive Data Negative: <20 U/mL Positive: > or = 20 U/mL Beta- 2 glycoprotein 1 (Beta-2 GP1) antibodies are a more specific marker of thrombotic risk. It is expected that some samples will be ACL positive and Beta- 2 GP1 negative. In order to improve specificity, the International Congress on Antiphospholipid Antibodies recommends Beta-2 GP1 antibodies of IgG or IgM isotype (> the 99th percentile), obtained twice, at least 12 weeks apart, to support a diagnosis of antiphospholipid syndrome. The cutoff for this assay was developed from data based on the 99th percentile. The Beta-2 GP1 IgM test can produce false positive results due to cross-reactivity with Rheumatoid factor. These results were obtained with the avocarrotlex 2200 System. Beta-2 GP1 IgM values obtained with different manufacturers' assay methods may not be used interchangeably. Current interpretive data was last revised on 2016. Blood 11/28/2024 10:5 5 AM CDT 11/28/2024 12:15 PM CDT Digna Jimenez MD LAB BLOOD ORDERABLES Final Result [facility] Department [place] [address] * Beta 2 glycoprotein IgG Ab (11/28/2024 10:55 AM CDT) [facility] Beta-2 glycoprotein I, IgG <1.4 <=19.9 units/mL Comment: Interpretive Data Negative: <20 U/mL Positive: > or = 20 U/mL Beta-2 glycoprotein 1 (Beta-2 GP1) antibodies are a more specific marker of thrombotic risk. It is expected that some samples will be ACL positive and Beta- 2 [id number]. In order to improve specificity, the International Congress on Antiphospholipid Antibodies recommends Beta-2 GP1 antibodies of IgG or IgM isotype (> the 99th percentile), obtained twice, at least 12 weeks apart, to support a diagnosis of antiphospholipid syndrome. The cutoff for this assay was developed from data based on the 99th percentile. These results were obtained with the avocarrotlex 2200 System. Beta 2GP1 IgG values obtained with different manufacturers' assay methods may not be used interchangeably. Current interpretive data was last revised on 2016. Blood 11/28/2024 10:5 5 AM CDT 11/28/2024 12:15 PM CDT Digna Jimenez MD LAB BLOOD ORDERABLES Final Result Performing Organization Address City/[facility] Co de Phone Number [facility] [place] [address] * (ABNORMAL) Thyroid peroxidase antibody (TPO) (11/28/2024 10:55 AM CDT) Anti Thyroid Peroxidase 46(H) <=34 IUnits/mL Comment: ATPO Interpretive Data Results may be up to 28% higher in patients receiving Itraconazole. Current interpretive data was last revised 2020. Blood 11/28/2024 10:5 5 AM CDT 11/28/2024 12:15 PM CDT Digna Jimenez MD LAB BLOOD ORDERABLES Final Result Performing Organization Address [facility] Co de Phone Number [facility] Department [place] [address] * Cardiolipin antibody, IgM (11/28/2024 10:55 AM CDT) Cardiolipin, IgM 4.0 <=19.9 MPL U/mL Comment: Interpretive Data Negative: <20 MPL U/mL Positive: > or = 20 MPL U/mL Anticardiolipin antibodies are associated with certain clinical events including unexplained arterial and venous thromboemboli, and unexplained morbidity. However, detection of low levels of anticardiolipin antibodies occurs in both healthy individuals and patients with co-morbidities not associated with the antiphospholipid antibody (APA) syndrome including inflammatory and infectious conditions. In order to improve specificity, the International Congress on Antiphospholipid Antibodies recommends ACL antibodies of IgG or IgM isotype present in medium or high titer (e.g. > 40 MPL, or >the 99th percentile), on two or more occasions, at least 12 weeks apart, to support a diagnosis of antiphospholipid syndrome. The cutoff for this assay was developed from data based on the 99th percentile. In addition, the International Congress on Antiphospholipid Antibodies does not recommend testing for IgA SYEDA. The ACL IgM test can produce false positive results due to cross-reactivity with Rheumatoid factor, dsDNA or certain infectious disease antibodies. These results were obtained with the [employer] BioPlex 2200 System. Cardiolipin IgM values obtained with different manufacturers' assay methods may not be used interchangeably. Current interpretive data was last revised on 2016. Blood 11/28/2024 10:5 5 AM CDT 11/28/2024 12:15 PM CDT Result [facility] Digna Jimenez MD LAB BLOOD ORDERABLES Final Result Performing Organization Address [facility] de Phone Number [facility] [place] [address] * Hemoglobin A1c (11/28/2024 10:55 AM CDT) Pathologist [facility] Hgb A1C 5.2 4.0 - 5.6 % Estimated Average Glucose 103 mg/dL [facility] Comment: The ADA recommends reporting an estimated Average Glucose (eAG) with all Hemoglobin A1c results using the equation derived from a study of 507 normal and diabetic adults. Minority populations were underrepresented and children were not included. (Diabetes Care 2020; 43(S1): S66-S76). The eAG is not equivalent to a fasting glucose. Blood 11/28/2024 10:5 5 AM CDT 11/28/2024 12:15 PM CDT us Digna Jimenez MD LAB BLOOD ORDERABLES Final Result Performing Organization Address [facility] de Phone Number [facility] [place] [address] * POCT hCG, urine, by visual color (11/28/2024) Pathologist [facility] test, ur, POC Negative 11/28/2024 Result Brian Jimenez MD POINT OF CARE TEST ORDERAB LES Final Result * High Risk HPV DNA Detection with Genotyping (Molecular component) (02/11/2024 12:04 PM ART MODEL) Pathologist [facility] HPV HR 16 Not Detected Not Detected [facility] Comment:Testing performed by : [facility], [address] [place]., [address] HPV HR 18 Not Detected Not Detected [facility] Comment:Testing performed by : [facility], [address] [place]., [address] HPV HR Non 16/18 Not Detected Not Detected [facility] Comment: Interpretive Data Nucleic acid amplification for detection of high-risk Human Papilloma virus (HPV) is performed by the Kevan Shashank 6800 HPV test. This assay specifically detects HPV-16 and HPV-18 genotypes. The following HPV genotypes are detected as high-risk HPV: HPV-31, 33, 35, ,39, 45, 51, 52, 56, 58, 59, 66, and 68. This assay has been approved by the [place] Food and Drug Administration for detection of HPV in cervical specimens collected by a physician using an endocervical brush/spatula or cervical broom and placed in the ThinPrep Pap Test PreservCyt collection containers. The performance characteristics of this test have been verified by the [facility] Molecular Infectious Disease laboratory. Correlate with separately reported cytology results, as applicable. Interpretive data last revised 22 Testing performed by: [facility], [address] [place]., [address] Endocervical 02/11/2024 12:0 4 PM ART MODEL 02/12/2024 1:03 PM ART MODEL Narrative [facility] - 02/12/2024 11:29 PM ART MODEL Clinical history and diagnosis->Well Woman Exam Testing type->Screening Last menstrual period (date if known)->01/16/2024 Stephanie Grimaldo MD LAB BODY FLUIDS AND STOOLS ORDERABLES Final Result [facility] [address] Department [place] [address] [facility] * Hepatitis C antibody Blood (02/11/2024 12:04 PM ART MODEL) Hep C Ab Nonreactive Nonreactive Comment: Interpretive Data Nonreactive: Antibodies to HCV not detected. Does NOT exclude the possibility of recent exposure to HCV. Equivocal: Equivocal for HCV antibodies. Supplemental molecular testing will be automatically performed to determine infection status in accordance with current CDC screening recommendations. Reactive: Positive for HCV antibodies. This may represent current or past HCV infection. Supplemental molecular testing will be automatically performed to determine current infection status in accordance with current CDC screening recommendations. Interpretive data was last revised on 2019. Blood 02/11/2024 12:0 4 PM ART MODEL 02/11/2024 8:35 PM ART MODEL Stephanie Grimaldo MD LAB MICROBIOLOGY - GENERAL ORDERABLES Final Result [facility] [address] Department [place] [address] from Last 3 Months or Most Recently Relevant to Health Maintenance Additional Health Concerns Active Problems Noted Date Diagnosed Date Autogenerated Problem 01/21/2025 Insurance MEDICARE [facility] IDPA MEDICARE Care Teams Triage Registered Nurse Relationship Specialty Start Date End Date Citlalli Santana NP [address] [place] [address] PCP - General Top Flavor Attendant 09/30/24 Stephanie Grimaldo MD [address] [place] [address] [place] [address] Promotional Representative Obstetrics and Gynecology 09/30/24
--- OUTSIDE RECORDS SUMMARY | 2025-01-21 21:21 | XMS_ITS | Encounter Summary ---
Author Organization [facility] Address [address] [place] [address] Phone Care Team Providers Care Order Checker Packer Processer Name Role Phone Sola López APRN, EMPLOYMENT CLERK Unavailable [phone] Sola López APRN, EMPLOYMENT CLERK Primary Care Provider Sheldon Driscoll MD Primary Care Provider [phone] Zurdo Turner LAVENDER FARM WORKER, EMPLOYMENT CLERK Unavailable [phone] Daniel Deleon MD Unavailable [phone] Stephanie Grimaldo MD Unavailable Unavailab Amita Williamson MD Unavailable Unavailable Citlalli Santana LAVENDER FARM WORKER, EMPLOYMENT CLERK Primary Care Provider + [phone] Chel Mcfarlane APRN, [facility] Unavailable + [phone] Jackson Kim MD Unavailable Encounter Details Date Type Department Care Team (Latest Contact Info) Description 04/08/2021 Transcribe Orders [facility] Patient Access Admitting [address] [place] [address] [place] [address] [place] [id number] Encounter for chorionic villus sampling (Primary Dx) Social History Tobacco Use Types Packs/Day Years Used Date Smoking Tobacco: Former Cigarettes Smokeless Tobacco: Never PHQ-2 Answer Date Recorded Total Score - Questions 1-9 0 06/12 Education Answer Date Recorded What is the highest level of school you have completed or the highest degree you have received? 12th grade 01/17/2021 Comments No Sex and Gender Information Value Date Recorded Sex Assigned at Not on file Legal Sex Female 12:15 AM CDT Gender Identity Female 12/26/2022 7:15 PM NAVAL AIRCREWMAN OPERATOR Sexual Orientation Straight 12/26/2022 7: 15 PM NAVAL AIRCREWMAN OPERATOR COVID-19 Exposure Response Date Recorded In the last month, have you been in contact with someone who was confirmed or suspected to have Coronavirus / COVID-19? No / Unsure 04/11/2021 8:44 AM NAVAL AIRCREWMAN OPERATOR documented as of this encounter Functional Status * Question Answer Date of Assessment Author Best Eye Response 4-->(E4) spontaneous 04/11/2021 8:44 AM NAVAL AIRCREWMAN OPERATOR Sola Juarez RN Best Verbal Response 5-->(V5) oriented 04/11/2021 8:44 AM NAVAL AIRCREWMAN OPERATOR Sola Juarez RN Best Motor Response 6-->(M6) obeys commands 04/11/2021 8:44 AM Sola Boo RN [place] Coma Scale Score 15 04/11/2021 8:44 AM Sola Boo RN * Question Answer Date of Assessment Author Pain Description constant;pressure 04/11/2021 10:36 AM NAVAL AIRCREWMAN OPERATOR Odalis Boyd RN (0-10) Pain Rating: Activity 4 04/11/2021 10:36 AM NAVAL AIRCREWMAN OPERATOR Odalis Boyd R N (0-10) Pain Rating: Rest 4 04/11/2021 10:36 AM NAVAL AIRCREWMAN OPERATOR Odalis Boyd RN * Question Answer Date of Assessment Author SpO2 99 04/11/2021 8:44 AM NAVAL AIRCREWMAN OPERATOR Sola Xie RN O2 Device None (Room air) 04/11/2021 8:44 AM NAVAL AIRCREWMAN OPERATOR Sola Goddard RN * Fall Risk Indicators Answer Date of Assessment Author 0-->no indicators present 04/11/2021 8:45 AM Sola Boo RN * Fall Risk Score Answer Date of Assessment Author 0 04/11/2021 8:45 AM NAVAL AIRCREWMAN OPERATOR Erin Juarez RN * Question Answer Date of Assessment Author BP 119/78 04/11/2021 10:33 AM Odalis Ragsdale RN Temp 98 04/11/2021 8:44 AM Sola Bower RN Pulse 100 04/11/2021 8:44 AM Sola Bower RN Resp 16 04/11/2021 8:44 AM Sola Bower RN documented as of this encounter Mental Status * Question Answer Entry Date Author Best Eye Response 4-->(E4) spontaneous 8:44 AM Sola Boo RN Best Verbal Response 5-->(V5) oriented 8:44 AM Sola Boo RN Best Motor Response 6-->(M6) obeys commands 03/16 8:44 AM Sola Boo RN [place] Coma Scale Score 15 04/11/2021 8:44 AM Sola Boo RN * Question Answer Entry Date Author Pain Description constant;pressure 04/11/2021 10 :36 AM Odalis Ragsdale RN (0-10) Pain Rating: Activity 4 10:36 AM Odalis Ragsdale RN (0-10) Pain Rating: Rest 4 022 10:36 AM Odalis Ragsdale RN * Question Answer Entry Date Author SpO2 99 04/11/2021 8:44 AM Sola Bower RN O2 Device None (Room air) 04/11/2021 8:44 AM Sola Han RN * Fall Risk Indicators Answer Entry Date Author 0-->no indicators present 04/11/2021 8:45 AM Sola Boo RN * Fall Risk Score Answer Entry Date Author 0 04/11/2021 8:45 AM Erin Boo RN * Question Answer Entry Date Author BP 119/78 04/11/2021 10:33 AM Odalis Ragsdale RN Temp 98 04/11/2021 8:44 AM Sola Bower RN Pulse 100 04/11/2021 8:44 AM Sola Bower RN documented in this encounter Plan of Treatment Upcoming Encounters Date Type Department Care Team (Late st Contact Info) Description 02/26/2025 11:30 AM NAVAL AIRCREWMAN OPERATOR [facility] [place] [address] [place] [phone] Chel Mcfarlane APRN, BALLING MACHINE OPERATOR [address] [place] [address] 03/30/2025 2:15 PM NAVAL AIRCREWMAN OPERATOR [facility] [place] [address] [place] [phone] Jackson Kim MD [address] [place] [phone] documented as of this encounter Visit Diagnoses Diagnosis Encounter for chorionic villus sampling- Primary Other specified screening documented in this encounter Additional Health Concerns Assessment Noted Time PHQ-9 Depression Total Score: 0 06/22/19 21 10:03 AM CDT documented as of this encounter Care Teams Order Checker Packer Processer Relationship Specialty Start Date End Date Sola López APRN, EMPLOYMENT CLERK [address] [place] [address] PCP - General Advanced Practice Nurse 03/22/20 Sheldon Driscoll MD [address] [place] [address] PCP - General Internal Medicine 05/25/22 10/18/23 Citlalli Santana APRN, EMPLOYMENT CLERK [address] [place] [address] PCP - General Certified Nurse Practitioner 10/19/23 Sola López APRN, EMPLOYMENT CLERK [address] [place] [address] Nurse Practitioner Advanced Practice Nurse 03/18/2002/03 Zurdo Turner, LAVENDER FARM WORKER, EMPLOYMENT CLERK [address] [place] [address] Nurse Practitioner Urology 04/04/22 Daniel Deleon MD [address] [place] [address] Consulting Physician Gastroenterology 12/29/21 Stephanie Grimaldo MD [address] [place] [address] Consulting Physician Obstetrics & Gynecology 10/17/23 Amita Smith MD [address] [place] [address] Consulting Physician Reproductive Endocrinology 10/17/23 Chel Mcfarlane LAVENDER FARM WORKER, [facility] [address] [place] [address] Nurse Practitioner Advanced Practice Nurse 04/14/24 Jackson Kim MD [address] [place] [address] Consulting Physician Pulmonary Disease 04/29/24 documented as of this encounter
--- OUTSIDE RECORDS SUMMARY | 2025-01-21 21:21 | XMS_ITS | Encounter Summary ---
Author Organization [facility] Address [address] [place] [address] Phone Care Team Providers Care Swamper Name Role Phone Zurdo Turner APRN, LINK TRAINER MAINTENANCE WORKER Unavailable [phone] Daniel Deleon MD Unavailable [phone] Stephanie Grimaldo MD Unavailable Unavailab Amita Williamson MD Unavailable Unavailable Citlalli Santana CLAIMS COUNSEL, LINK TRAINER MAINTENANCE WORKER Primary Care Provider [phone] Chel Mcfarlane APRN, UNEMPLOYMENT INSURANCE DIRECTOR Unavailable + [phone] Jackson Kim MD Unavailable Reason for Visit * Reason Onset Date Comments Medication Refill 12/04/2024 Encounter Details Date Type Department Care Team (Late st Contact Info) Description 12/04/2024 Telephone [facility] [address] [place] [phone] Citlalli Santana APRN, LINK TRAINER MAINTENANCE WORKER [address] [place] [address] Medication Refill Social History Tobacco Use Types Packs/Day Years Used Date Smoking Tobacco: Former Cigarettes Smokeless Tobacco: Never Alcohol Use Standard Drinks/Week Comments Yes 0 (1 standard drink = 0.6 oz pur e alcohol) rare [facility] Utilities Answer Date Recorded In the past 12 months has [employer], gas, oil, or water company threatened to shut off services in your home? Patient declined 05/16/2024 Social Connection and Isolation Panel Answer Date Recorded In a typical week, how many times do you talk on the phone with family, friends, or neighbors? Patient declined 05/16/2024 How often do you get togethe r with friends or relatives? Patient declined 05/16/2024 How often do you attend holiness or sabianism serv ices? Patient declined 05/16/2024 Do you belong to any clubs o r organizations such as holiness groups, unions, fraternal or athletic groups, or school groups? Patient declined 05/16/2024 How often do you attend meet ings of the clubs or organizations you belong to? Patient declined 05/16/2024 Are you , , di vorced, , never , or living with a partner? Patient declined 05/16/2024 AUDIT-C Answer Date Recorded Q1: How often do you have a drink containing alc ohol? Patient declined 05/16/2024 Q2: How many drinks containi ng alcohol do you have on a typical day when you are drinking? Patient declined 05/16/2024 Q3: How often do you have si x or more drinks on one occasion? Patient declined 05/16/2024 Overall Financial Resource Strain (CARDIA) Answe r Date Recorded How hard is it for you to pa y for the very basics like food, housing, medical care, and heating? Patient declined 05/16/2024 PHQ-2 Answer Date Recorded Total Score - Questions 1-9 0 02/12 [facility] - Occupational Stress Questionnaire Answer Date Recorded Do you feel stress - tense, restless, nervous, or anxious, or unable to sleep at night because your mind is troubled all the time - these days? Patient declined 05/16/2024 Exercise Vital Sign Answer Date Recorde d On average, how many days pe r week do you engage in moderate to strenuous exercise (like a brisk walk)? Patient declined On average, how many minutes do you engage in exercise at this level? Patient declined 05/16/2024 Hunger Vital Sign Answer Date Recorded Within the past 12 months, y ou worried that your food would run out before you got the money to buy more. Patient declined Within the past 12 months, t he food you bought just didn't last and you didn't have money to get more. Patient declined 05/2024 PRAPARE - Transportation Answer Date Re corded In the past 12 months, has l ack of transportation kept you from medical appointments or from getting medications? Patient declined 05/16/2024 In the past 12 months, has l ack of transportation kept you from meetings, work, or from getting things needed for daily living? Patient declined 05/16/2024 Housing Stability Vital Sign Answer Erasmo e Recorded In the last 12 months, was t here a time when you were not able to pay the mortgage or rent on time? Patient declined 05/17/19 Number of Times Moved in the Last Year Not on fi le 05/16/2024 At any time in the past [address] [facility], were you homeless or living in a residential (including now)? Patient declined 05/16/2024 Education Answer Date Recorded What is the highest level of school you have completed or the highest degree you have received? 12th grade 01/17/2021 Sexually Active Control Partners Comments Yes lmp- 03/12/22 Comments No Sex and Gender Information Value Date Recorded Sex Assigned at Not on file Legal Sex Female 12:15 AM CDT Gender Identity Female 12/26/2022 7:15 PM INSIDE METER TESTER Sexual Orientation Straight 12/26/2022 7: 15 PM INSIDE METER TESTER documented as of this encounter Miscellaneous Notes * Telephone Encounter - Citlalli Santana APRN, CNP - 12/04/2024 11:26 AM CDT Since her back pain is severe, she needs to be seen. * Telephone Encounter - Odalis Abreu RN - 12/04/2024 11:18 AM CDT Situation: Pt calling. Background: Pt contacting PCP office. Last discussed back pain at OV 02/22/24 Ibuprofen prescribed 02/22/24 600 mg 90 tablets Assessment: Severe lower back pain - chronic Pain Now requesting 800 mg of ibuprofen. Was taking 1.5 tablets of the 600 mg ibuprofen. Recommendation: [facility] verified. Encounter routed to provider to notify. Discussed utilizing MyChart to: discuss if they would prefer a MyChart message or phone call response. Response is preferred via MyChart or Phone Call. documented in this encounter Plan of Treatment Upcoming Encounters Date Type Department Care Team (Late st Contact Info) Description 02/26/2025 11:30 AM INSIDE METER TESTER Office Visit [facility] Neurology [facility] [address] [place] [address] Chel Mcfarlane APRN, UNEMPLOYMENT INSURANCE DIRECTOR [address] [place] [address] 03/30/2025 2:15 PM INSIDE METER TESTER Office Visit [facility] Pulmonology & Sleep Medicine [facility] [address] [place] [address] Jackson Kim MD [address] [place] [address] documented as of this encounter Visit Diagnoses Not on filedocumented in this encounter Additional Health Concerns Assessment Noted Time PHQ-9 Depression Total Score: 0 02/21/19 25 2:00 PM INSIDE METER TESTER documented as of this encounter Care Teams Swamper Relationship Specialty Start Date End Date Citlalli Santana APRN, LINK TRAINER MAINTENANCE WORKER [address] [place] [address] PCP - General Certified Nurse Practitioner 10/19/23 Zurdo Turner APRN, LINK TRAINER MAINTENANCE WORKER [address] [place] [address] Nurse Practitioner Urology 04/04/22 Daniel Deleon MD [address] [place] [address] Consulting Physician Gastroenterology 12/29/21 Stephanie Grimaldo MD [address] [place] [address] Consulting Physician Obstetrics & Gynecology 10/17/23 Amita Smith MD [address] [place] [address] Consulting Physician Reproductive Endocrinology 10/17/23 Chel Mcfarlane, CLAIMS COUNSEL, UNEMPLOYMENT INSURANCE DIRECTOR [address] [place] [address] Nurse Practitioner Advanced Practice Nurse 04/14/24 Jackson Kim MD [address] [place] [address] Consulting Physician Pulmonary Disease 04/29/24 documented as of this encounter
--- OUTSIDE RECORDS SUMMARY | 2025-01-21 21:21 | XMS_ITS | Data Portability ---
Author Organization [facility] [place] Address [address] [place] [address] Care Team Providers Care Supervisor Plating And Point Assembly Name Role Phone PADMINI NIXON Primary Care Provider [phone] Assessment No assessment recorded. Plan of Treatment Reminders Order Date Submit Date Provider Last Modified By Organization Details Last Modified Time Details Appointments None recorded. Lab None recorded. Referral None recorded. Procedures None recorded. Surgeries None recorded. Imaging US, transvagina l 2023 024 [address], [address], [place], [address], 18:27:26 US, transvagina l 2023 [address], [address], [place], [address], 18:11:47 Medication Orders Pregnyl 10,000 unit intramuscul ar solution 2023 024 [email or web address] Not available 08:58:38 Patient TargetsNo targets recorded. Patient InstructionsNo instructions recorded. Reason for Referral None Reported. Results Created Date Observation Date Name Description Value Unit Range Abnormal Flag Note LastModifiedBy Organization Detail LastModifiedTime 02/16/19 24 02/16/2023 US, trans vagin al No observ ation record ed. [facility] [address], [place], [address], 02/16/2023 17:49:56 02/16/19 24 02/16/2023 US, trans vagin al No observ ation record ed. [email or web address] Maia [address], [place], [address], 02/17/2023 18:29:40 03/14/19 24 03/14/2023 US, trans vagin al No observ ation record ed. [email or web address] [place] [address], [place], [address], 03/14/2023 13:18:15 03/14/19 24 03/14/2023 US, obste tric, follo w-up No observ ation record ed. [email or web address] Maia [address], [place], [address], 04/05/2023 10:34:10 05/07/19 24 05/07/2023 US, trans vagin al No observ ation record ed. [email or web address] [place] [address], [place], [address], 05/07/2023 13:31:03 05/07/19 24 05/07/2023 US, trans vagin al No observ ation record ed. JOY Maia [address], [place], [address], 05/07/2023 18:52:24 05/09/19 24 05/09/2023 US, trans vagin al No observ ation record ed. [email or web address] [place] [address], [place], [address], 05/09/2023 13:07:18 05/09/19 24 05/09/2023 US, trans vagin al No observ ation record ed. [email or web address] Maia [address], [place], [address], 05/10/2023 10:28:36 Result Notes None recorded. Procedures Surgical History Date Name Laterality Status Provider Name and Address Organization Details Recorded Time 2023 intrauterine artificial insemination completed [facility] 05/10/2023 09:06:18 [address] [facility] 05/03/2023 14:12:32 2023 intrauterine artificial insemination completed [facility] 03/16/2023 09:13:26 2023 intrauterine artificial insemination completed [facility] 02/17/2023 09:14:08 2019 reversal of female sterilization completed [facility] 10/13/2020 15:36:[address] [facility] 10/13/2020 15:28:[address] [facility] 10/13/2020 15:36:[address] [facility] 10/13/2020 15:28:[address] [facility] 10/13/2020 15:31:[address] [facility] 10/13/2020 15:29:[address] [facility] 10/13/2020 15:28:51 Imaging Results None recorded. Procedure Notes None recorded. Medical Equipment None Reported. Allergies No known drug allergies Medications Name Sig Start Date Stop Date Status Note LastModified by Organization Details LastModified Time compound drug 03/16 completed Not Available Not Available Not Available cyclobenzap rine 10 mg tablet TAKE 1 TABLET BY MOUTH THREE TIMES A DAY NEEDED FOR MUSCLE SPASMS 10/13 completed Not Available Not Available Not Available amoxicillin 500 mg capsule TAKE 1 CAPSULE BY MOUTH THREE TIMES A DAY 05/06 completed Not Available Not Available Not Available methocarbam ol 500 mg tablet TAKE 1 TABLET BY MOUTH TWICE A DAY 01/10 completed Not Available Not Available Not Available clindamycin HCl 300 mg capsule TAKE 1 CAPSULE BY MOUTH EVERY 12 HOURS FOR 5 DAYS 01/10 completed Not Available Not Available Not Available fluconazole 150 mg tablet TAKE 1 TABLET BY MOUTH EVERY DAY ONE DOSE 05/06 completed Not Available Not Available Not Available hydrocodone 5 mg-acetamin ophen 325 mg tablet TAKE 1 TABLET BY MOUTH EVERY 6 HOURS NEEDED 10/13 completed Not Available Not Available Not Available fluconazole 200 mg tablet TAKE 1 TABLET BY MOUTH ONCE 01/24 completed Not Available Not Available Not Available prednisone 20 mg tablet TAKE 2 TABLETS BY MOUTH EVERY DAY FOR 5 DAYS 10/13 completed Not Available Not Available Not Available Pregnyl 10,000 unit intramuscul ar solution bring to office for injection active Not Available Not Available No t Available oxycodone-a cetaminophe n 5 mg-325 mg tablet TAKE 1 TABLET BY MOUTH EVERY 6 HOURS NEEDED FOR PAIN 10/13 completed Not Available Not Available Not Available amoxicillin 875 mg tablet TAKE 1 TABLET BY MOUTH TWICE A DAY FOR 14 DAYS 10/13 completed Not Available Not Available Not Available progesteron e micronized 200 mg capsule TAKE 1 CAPSULE BY MOUTH DAILY AT BEDTIME active Not Available Not Available No t Available ibuprofen 600 mg tablet TAKE 1 TABLET BY MOUTH EVERY 6 HOURS NEEDED FOR PAIN 03/16 completed Not Available Not Available Not Available levofloxaci n 750 mg tablet 03/16 completed Not Available Not Available Not Available letrozole 2.5 mg tablet TAKE 2 TABLETS DAYS 3-7 OF CYCLE active Not Available Not Available No t Available albuterol sulfate HFA 90 mcg/actuati on aerosol inhaler TAKE 2 PUFFS BY INHALATIO N EVERY 4 HOURS NEEDED FOR WHEEZING OR COUGH. active Not Available Not Available No t Available dexamethaso ne 0.5 mg tablet TAKE 1 TABLET BY MOUTH DAILY STARTING ON THE 3RD DAY OF PERIOD 01/10 completed Not Available Not Available Not Available Clomid 50 mg tablet 02/17 completed Not Available Not Available Not Available metoclopram shirley 10 mg tablet TAKE 0.5-1 TABLETS BY MOUTH 4 TIMES DAILY NEEDED FOR NAUSEA - 1ST LINE. 01/10 completed Not Available Not Available Not Available amoxicillin 875 mg-potassiu m clavulanate 125 mg tablet TAKE 1 TABLET BY MOUTH TWICE A DAY FOR 5 DAYS 05/06 completed Not Available Not Available Not Available metformin ER 750 mg tablet,exte nded release 24 hr TAKE 2 TABLETS BY MOUTH ONCE DAILY AT DINNER TIME 01/10 completed Not Available Not Available Not Available nitrofurant oin monohydrate /macrocryst als 100 mg capsule TAKE 1 CAPSULE BY MOUTH TWICE A DAY 01/10 completed Not Available Not Available Not Available Vitamin D3 active Not Available Not Av ailable Not Available cholecalcif samson (vitamin D3) 1,250 mcg (50,000 unit) capsule TAKE 1 CAPSULE BY MOUTH AFTER FOOD ONCE A WEEK 01/10 completed Not Available Not Available Not Available Vitamins Plus Low Iron 27 mg iron-1 mg tablet TAKE ONE TABLET BY MOUTH ONCE DAILY active Not Available Not Available No t Available Vitals Date Recorded Body height Provider Name an d Address Organization Details Last Updated DateTime 03/15/2023 165.1 cm Debby Ballesteros [facility] 03/15/2023 16:14:01 Date Recorded Body height Body mass index (BMI) Body weight Systolic And Diastolic Provider Name and Address Organization Details Last Updated DateTime 03/16/2023 165.1 cm 34.8 kg/m2 59671.81 g 124/85 mm[Hg] Debby Ballesteros [facility] 03/16/2023 09:03:37 Date Recorded Body height Body mass index (BMI) Body weight Systolic And Diastolic Provider Name and Address Organization Details Last Updated DateTime 05/10/2023 165.1 cm 35.6 kg/m2 79320.77 g 145/91 mm[Hg] Debby Ballesteros [facility] 05/10/2023 09:05:11 Social History Question Answer Notes LastModified by Organizat ion Details LastModified Time Tobacco Smoking Status Never Smoker Debby thomas [facility] 02/17/2023 09:39:12 If You Are , What Was Your Level Of Alcohol Consumption Prior To ? None [email or web address] Information not available 02/17/2023 Are You Blind Or Do You Have Difficulty Seeing? No [email or web address] Information n ot available 10/13/2020 What Is Your Level Of Caffeine Consumption? Occasional Information not available 10/13/2020 How Much Tobacco Do You Chew? None [email or web address] Information not available 01/24/2023 In The 14 Days Before Symptom Onset, Have You Had Close Contact With A Laboratory-confirm ed COVID-19 While That Case Was Ill? No Information n ot available 10/13/2020 In The 14 Days Before Symptom Onset, Have You Had Close Contact With A Person Who Is Under Investigation For COVID-19 While That Person Was Ill? No [email or web address] Information not available 10/13/2020 Have You Been To An Area Known To Be High Risk For COVID-19? No [email or web address] Information not available 10/13/2020 Are You Deaf Or Do You Have Serious Difficulty Hearing? No [email or web address] Information not available 10/13/2020 What Type Of Diet Are You Following? REGULAR [email or web address] Information n ot available 10/13/2020 What Is The Highest Grade Or Level Of School You Have Completed Or The Highest Degree You Have Received? [id number] [email or web address] Information not available 01/24/2023 Are There Any Guns Present In Your Home? No [email or web address] Information not available 01/24/2023 Have You Ever Been Counseled For Unhealthy Alcohol Use? No [email or web address] Information not available 02/17/2023 Do You Use Your Seat Belt Or Car Seat Routinely? Yes [email or web address] Information not available 10/13/2020 Do You Have Smoke And Carbon Monoxide Detectors In Your Home? Yes [email or web address] Information not available 10/13/2020 How Much Tobacco Do You Smoke? No [email or web address] Information not available 01/24/2023 Do You Use Sunscreen Routinely? No [email or web address] Information not available 01/24/2023 Has Tobacco Cessation Counseling Been Provided? No [email or web address] Information not available 02/17/2023 How Many Years Have You Smoked Tobacco? 0 [email or web address] Information not available 01/24/2023 Have You Used IV Drugs? No Information not available 01/24/2023 Do You Have Difficulty Walking Or Climbing Stairs? No [email or web address] Information not available 02/17/2023 Sex: Unknown Functional Status Question Answer Note LastModified by Organizat ion Details LastModified Time Do you use any illicit or recreational drugs? No [email or web address] Information not available 10/13/2020 Do you or have you ever used any other forms of tobacco or nicotine? No [email or web address] Information not available 02/17/2023 What is your level of alcohol consumption? Occasional [email or web address] Information not available 10/13/2020 Are you able to walk independently without assistance or assistive devices? YESWOREST [email or web address] Information not available 10/13/2020 Are you able to care for yourself independently? Yes [email or web address] Information not available 02/17/2023 Do you have difficulty dressing, bathing, grooming, or toileting? No Information not available 02/17/2023 What is your exercise level? Moderate [email or web address] Information not available 01/24/2023 Mental Status Question Answer Note LastModified by Organization D etails LastModified Time Do you feel stressed (tense, restless, nervous, or anxious, or unable to sleep at night)? [id number] [email or web address] Information not available 01/24/2023 Family History Relationship Description Onset Age of this Age Resolved Age Notes LastModified by Organization Details LastModified Time Mother Malignant neoplasm of cervix uteri [email or web address] Not available 09:00:50 Mother Heart disease [email or web address] Not available 10/13 15:26:32 Mother Hypercholest erolemia Not available 2023 09:00:50 Mother Hypertensive disorder Not available 2023 09:00:50 Father Malignant neoplasm of colon [email or web address] Not available 10/13 15:26:09 Father Heart disease [email or web address] Not available 10/13 15:26:32 Father Diabetes mellitus [email or web address] Not available 10/13 15:26:40 Father Hypertensive disorder [email or web address] Not available 2023 09:00:50 Maternal Aunt Malignant neoplasm of breast [email or web address] Not available 10/13 15:26:18 Sister Hypercholest erolemia [email or web address] Not available 2023 09:00:50 Medical History Condition Response Allergies (Food, seasonal, environmental ) Y Other N Drug/Latex Allergies/Reactions N Breast Cancer N Blood Transfusion N Lung Disease N Dermatologic Disorders N Defects or Inherited Disease N Breast Problem N Gestational Diabetes N Hematologic disorders N Anesthesia Complications N History of STI Y Deep Vein Thrombosis N Polycystic ovary syndrome Y Anxiety Disorder N Autoimmune disease N Arthritis N Polyps N Infertility N History of abnormal pap Y Acid Reflux (GERD) N Cancer N Varicosities N Stroke N Neurologic/Epilepsy N Endometriosis N High Cholesterol N Headaches N Fibromyalgia N Kidney Disease N Heart Problems N Thyroid Problems N Kidney or Bladder Problems N GI Problems N Eating Disorder N Anemia N Art (IVF or FET) Y Psychiatric Illness N Ovarian Cancer N Diabetes N Pulmonary (TB, Asthma) N Hepatitis/Liver Disease N No Past Medical History N Eczema N Urinary Tract Infection N Abuse/Domestic Violence N Asthma Y Trauma/Violence N Depression/ depression N Heart Disease N Pre-Eclampsia N Hypertension N Osteoporosis N Thrombophilias N Gynecological History Statement/Question Response Abnormal Pap Y Date of Last Mammogram Date of LMP 04/28/2023 N On BCP's at Conception? N STIs/STDs Y Was last menstrual period normal N Colposcopy 02/12/1998 Duration of Flow (days) 4 Current Control Method Seeking Pre gnancy Age at First Child 27 Frequency of Cycle (Q days) 30 Sexually Active? Y Age of first menstrual cycle 15 Date of Last Pap Smear Sexual Problems? N LMP Approximate Desired Control Method N 02/12/1998 Obstetrics History GPAL:G 3 P 2 0 1 2 Type Value Full Term 2 Spontaneous 1 Living 2 Total 3 Past Encounters Encounter ID Performer Location Encounter Start Date Encounter Closed Date Diagnosis/Indication Diagnosis SNOMED-CT Code Diagnosis ICD10 Code Diagnosis IMO Codes Diagnosis Note [id number] Herlinda Palacios CNM [place] [address] [address] 10/13/2020 14:57:11 10/13/2020 16:40:50 Polycystic ovary syndrome 781625973 E28.2 Trying to conceive 53464 9001 Z31.9 [id number] JOHN HUMMEL MD [place] [address],[place] [address] 01/10/2023 12:17:48 01/10/2023 13:44:18 Female infertility 2024479 N97.9 - Differenti al diagnosis of cause of infertilit y/RPL includes: structural (possible fibroid) vs age related- We discussed the potential causes of infertilit y and rationale behind testing. We also discussed her reproducti ve potential in the context of her age as well as the risk of aneuploidy .- AMH wnl- The patient is asked to complete the following diagnostic work up to include: pelvic US- Discussed the fertile time of the cycle and options for tracking ovulation, including ovulation predictor kits and basal body temperatur e.-- Discussed timed intercours e every other day starting on Day 6 of period through to the next period.-- Discussed using LH surge kits, usually accurate and would recommend intercours e that day and the next day, then can wait until next cycle.-- Discussed ovulation induction would be considered only after behavioral interventi ons were implemente d and after partner completes semen analysis.- Following the return of these test results she is asked to return to the office for further discussion of reproducti ve planning and treatment options [id number] Kyaw Anthony MD [place] [address],[place] [address] 01/17/2023 17:19:53 01/17/2023 18:48:21 Female infertility 1466804 N97.9 [id number] Herlinda Palacios CNM [place] [address],[place] [address] 01/24/2023 17:23:36 01/25/2023 18:36:18 Female infertility 0059521 N97.9 Polycystic ovary syndrome 738089789 E28.2 Trying to conceive 00523 9001 Z31.9 Past pregn rhonda history of miscarriage 251786307 Z87.59 [id number] Kyaw Anthony MD [place] [address],[place] [address] 02/16/2023 13:18:33 02/16/2023 14:00:41 Female infertility 3593321 N97.9 [id number] Herlinda Palacios [facility] [address],[place] [address] 02/16/2023 17:51:20 02/18/2023 08:07:04 Trying to conceive 282882251 Z31.9 [id number] Herlinda Palacios [facility] [address],[place] [address] 02/17/2023 09:14:37 02/18/2023 08:34:11 Artificial insemination 96712479 Z31.83 pt get well f/u pending cycle or +UPT [id number] Kyaw Anthony MD [place] [address],[place] [address] 03/14/2023 12:23:44 03/14/2023 13:03:35 Female infertility 5636363 N97.9 [id number] Herlinda Palacios [facility] [address],[place] [address] 03/15/2023 12:15:42 03/15/2023 16:19:31 Trying to conceive 795775516 Z31.9 [id number] Herlinda Palacios [facility] [address],[place] [address] 03/16/2023 08:57:18 03/16/2023 09:33:08 Artificial insemination 17644936 Z31.83 pt get well f/u pending cycle or +UPT [id number] Kyaw Anthony MD [place] [address],[place] [address] 05/07/2023 11:31:24 05/07/2023 12:09:53 Female infertility 8289919 N97.9 [id number] Kyaw Anthony MD [place] [address],[place] [address] 05/09/2023 11:18:58 05/09/2023 13:46:05 Female infertility 2068726 N97.9 [id number] Herlinda Palacios CNM [place] [address],[place] [address] 05/10/2023 08:58:06 05/10/2023 10:31:40 Artificial insemination 29341840 Z31.83 pt get well f/u pending cycle or +UPT Health Concerns Section Related Observation LastModified by Organization Detai ls LastModified Time None Recorded Concern Status LastModified by Organization Details LastModified Time None Recorded Advance Directives Directive None Recorded Payers Insurance Date Sequence Insurance Name Policy Number Policy Benavidez Covered Member ID Benavidez Member ID Guarantor Name 05/10/2023 1 [place] Shyicka Vincent [id number] yicka Vincent 05/10/2023 1 [facility] (MEDICAID HMO) [id number] Shyicka Vincent [id number] yicka Vincent 05/10/2023 2 [place] [facility] Shyicka Vincent [id number] Shyicka Vincent 11/15/2023 2 [facility] (MEDICAID HMO) Shyicka Vincent [id number] yicka Vincent 05/10/2023 1 [place] [facility] Shyicka Vincent [id number] yicka Vincent 05/10/2023 1 [facility] (MEDICARE - MEDICAID REPLACEMENT HMO) Shyicka Vincent [id number] yicka Vincent 05/10/2023 2 [facility] (MEDICARE - MEDICAID REPLACEMENT HMO) Shyicka Vincent [id number] yicka Vincent 05/10/2023 [facility] Shyicka Vincent [id number] Shyicka Vincent Notes Date Note Type Note Provider Name and Address Organization Details Recorded Time 03/16/2023 text/html ROS as noted in the HPI iui, reviewed usreviewed procedure, risks benefits, consent signed Herlinda Palacios CNM [address], [place], [address], [facility] 03/16/2023 09:32:19 05/10/2023 text/html ROS as noted in the HPI fuller pay-do not submit to insurancept here for IUItook letrozole days 3-7reviewed follicle USpre wash-fairpost wash-fairpt requests vaginal progesterone after IUI, discussed statistically that it does not seem to improve outcome or reduce the risk of miscarriage but pt would like an RX Herlinda Palacios CNM [address], [place], [address], [facility] 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 Status 10/14/19 21 1 CLOSED Fetus Data First Name Last Name Admitted to NICU Weight (g) Sex Living Outcome Pediatric Complications Fetus ID Race Codes Race Delivery Type 3175.14 4 F Full Term [id number] Repeat Abrahan Calculation Initial Abrahan Date Initial Exam Date Initial Exam Provider Initial Ultrasound Date Last Menstrual Period Date Ultra Sound Weeks Gestation 0 Eighteen To Twenty Week Abrahan Update Ultra Sound Date Fundal Height At Umbil Quickening Date Ultra Sound Latest Weeks Gestation Final Abrahan Confirmed By Final Abrahan Confirmed Date Final Abrahan Date Ultra Sound Latest Days Gestation 0 0 Menstrual History Last Menstrual Date Menses Monthly On Bcp Conception Prior Menses Frequency Hcg Plus Date Menarche Onset Age Delivery Information Delivery Date Delivery Type Labor Anesthesia Weeks Gestation Incision Type Labor Labor Length Hrs Delivered By Post Complications Tubal Sterilization Discharge Date Comments 0 Discharge Information Feeding Method Contraceptive Method Maternal HG B and HCT Levels Ob Episode Information Episode Created Date Number of Fetuses Patient Bloodtype Patient rh Status Prepregnancy Weight lbs Domestic Partner Domestic Partner Phone Father Name Microwave Oven Assembler Status 10/14/19 21 1 CLOSED Fetus Data First Name Last Name Admitted to NICU Weight (g) Sex Living Outcome Pediatric Complications Fetus ID Race Codes Race Delivery Type 3515.33 8 M Full Term [id number] Primary Abrahan Calculation Initial Abrahan Date Initial Exam Date Initial Exam Provider Initial Ultrasound Date Last Menstrual Period Date Ultra Sound Weeks Gestation 0 Eighteen To Twenty Week Abrahan Update Ultra Sound Date Fundal Height At Umbil Quickening Date Ultra Sound Latest Weeks Gestation Final Abrahan Confirmed By Final Abrahan Confirmed Date Final Abrahan Date Ultra Sound Latest Days Gestation 0 0 Menstrual History Last Menstrual Date Menses Monthly On Bcp Conception Prior Menses Frequency Hcg Plus Date Menarche Onset Age Delivery Information Delivery Date Delivery Type Labor Anesthesia Weeks Gestation Incision Type Labor Labor Length Hrs Delivered By Post Complications Tubal Sterilization Discharge Date Comments 7 41 Discharge Information Feeding Method Contraceptive Method Maternal HG B and HCT Levels Ob Episode Information Episode Created Date Number of Fetuses Patient Bloodtype Patient rh Status Prepregnancy Weight lbs Domestic Partner Domestic Partner Phone Father Name Microwave Oven Assembler Status 01/25/20 23 1 CLOSED Fetus Data First Name Last Name Admitted to NICU Weight (g) Sex Living Outcome Pediatric Complications Fetus ID Race Codes Race Delivery Type , Spontane ous [id number] Abrahan Calculation Initial Abrahan Date Initial Exam Date Initial Exam Provider Initial Ultrasound Date Last Menstrual Period Date Ultra Sound Weeks Gestation 0 Eighteen To Twenty Week Abrahan Update Ultra Sound Date Fundal Height At Umbil Quickening Date Ultra Sound Latest Weeks Gestation Final Abrahan Confirmed By Final Abrahan Confirmed Date Final Abrahan Date Ultra Sound Latest Days Gestation 0 0 Menstrual History Last Menstrual Date Menses Monthly On Bcp Conception Prior Menses Frequency Hcg Plus Date Menarche Onset Age Delivery Information Delivery Date Delivery Type Labor Anesthesia Weeks Gestation Incision Type Labor Labor Length Hrs Delivered By Post Complications Tubal Sterilization Discharge Date Comments 2 Discharge Information Feeding Method Contraceptive Method Maternal HG B and HCT Levels
--- OUTSIDE RECORDS SUMMARY | 2025-01-21 21:23 | XMS_ITS | Encounter Summary ---
Author Organization [facility] Address [address] [place] [address] Phone Care Team Providers Care Career Technical Supervisor Name Role Phone Sheldon Driscoll MD Primary Care Provider [phone] Zurdo Turner APRN, TRACTOR TRAILER DRIVER Unavailable [phone] Daniel Deleon MD Unavailable [phone] Stephanie Grimaldo MD Unavailable Unavailab Amita Williamson MD Unavailable Unavailable Citlalli Santana DRAWBENCH OPERATOR HELPER, TRACTOR TRAILER DRIVER Primary Care Provider + [phone] Chel Mcfarlane APRN, [facility] Unavailable + [phone] Jackson Kim MD Unavailable Encounter Details Date Type Department Care Team (Latest Contact Info) Description 11/30/[address] [facility] Laboratory Services [address] [place] [id number] [place] [address] [address] Absence of menstruation (Primary Dx) Social History Tobacco Use Types Packs/Day Years Used Date Smoking Tobacco: Former Cigarettes Smokeless Tobacco: Never Alcohol Use Standard Drinks/Week Comments Yes 0 (1 standard drink = 0.6 oz pur e alcohol) rare PHQ-2 Answer Date Recorded Total Score - [...] CDT Gender Identity Female 12/26/2022 7:15 PM SCHOOL PSYCHOLOGIST ASSISTANT Sexual Orientation Straight 12/26/2022 7: 15 PM SCHOOL PSYCHOLOGIST ASSISTANT documented as of this encounter Plan of Treatment Upcoming Encounters Date Type Department Care Team (Late st Contact Info) Description 02/26/2025 11:30 AM SCHOOL PSYCHOLOGIST ASSISTANT Office Visit [facility] - Neurology - [place] [address] [place] [address] Chel Mcfarlane APRN, INDUSTRIAL HYGIENE MANAGER [address] [place] [address] 03/30/2025 2:15 PM SCHOOL PSYCHOLOGIST ASSISTANT Office Visit [facility] - Pulmonology & Sleep Medicine - [place] [address] [place] [address] Jackson Kim MD [address] [place] [address] documented as of this encounter Results * ANTIMULLERIAN HORMONE, SERUM, [place] [address] (12/26/2022 11:00 AM SCHOOL PSYCHOLOGIST ASSISTANT) AMH1 ANTIMULLERIAN HORMONE, S 1.4 0.03 - 5.5 ng/mL 12/30/2022 9:20 AM SCHOOL PSYCHOLOGIST ASSISTANT [facility] Comment: ADDITIONAL INFORMATION The testing method is an electrochemiluminescence assay manufactured by [employer] and performed on the Shashank system. Values obtained with different assay methods or kits may be different and cannot be used interchangeably. This test has been modified from the manufacturers instructions. Its performance characteristics were determined by [facility] in a manner consistent with CLIA requirements. This test has not been cleared or approved by the U.S. Food and Drug Administration. Test Performed by: [facility] Laboratories - [facility] [address] [place] [address] Stagecraft Professor: Shayne Birmingham M.D. Ph.D.; CLIA# [id number] Blood Venipuncture / Unknown 12/26/2022 11:00 AM SCHOOL PSYCHOLOGIST ASSISTANT 12/26/2022 11:45 AM SCHOOL PSYCHOLOGIST ASSISTANT us Ashu Albert MD LAB SEND OUTS Final Result [facility] documented in this encounter Visit Diagnoses Diagnosis Absence of menstruation- Primary documented in this encounter Additional Health Concerns Assessment Noted Time PHQ-9 Depression Total Score: 0 06/22/19 21 10:03 AM CDT documented as of this encounter Care Teams Career Technical Supervisor Relationship Specialty Start Date End Date Sheldon Driscoll MD [address] [place] [address] PCP - General Internal Medicine 05/25/22 10/18/23 Citlalli Santana APRN, TRACTOR TRAILER DRIVER [address] [place] [address] PCP - General Certified Nurse Practitioner 10/19/23 Zurdo Turner APRN, TRACTOR TRAILER DRIVER [address] [place] [address] Nurse Practitioner Urology 04/04/22 Daniel Deleon MD [address] [place] [address] Consulting Physician Gastroenterology 12/29/21 Stephanie Grimaldo MD [address] [place] [address] Consulting Physician Obstetrics & Gynecology 10/17/23 Amita Smith MD [address] [place] [address] Consulting Physician Reproductive Endocrinology 10/17/23 Chel Mcfarlane, DRAWBENCH OPERATOR HELPER, INDUSTRIAL HYGIENE MANAGER [address] [place] [address] Nurse Practitioner Advanced Practice Nurse 04/14/24 Jackson Kim MD [address] [place] [address] Consulting Physician Pulmonary Disease 04/29/24 documented as of this encounter
--- OUTSIDE RECORDS SUMMARY | 2025-01-21 21:23 | XMS_ITS | Encounter Summary ---
Author Organization [facility] Address [address] [place] [address] Phone Care Team Providers Care Mesmerist Name Role Phone Sheldon Driscoll MD Primary Care Provider [phone] Zurdo Turner APRN, DENTAL SALES REPRESENTATIVE Unavailable [phone] Daniel Deleon MD Unavailable [phone] Stephanie Grimaldo MD Unavailable Unavailab Amita Williamson MD Unavailable Unavailable Citlalli Santana APRN, DENTAL SALES REPRESENTATIVE Primary Care Provider + [phone] Chel Mcfarlane APRN, [facility] Unavailable + [phone] Jackson Kim MD Unavailable Reason for Visit * Reason Comments Medication Refill Encounter Details Date Type Department Care Team (Late st Contact Info) Description 11/03/2022 Refill [facility] [address] [place] [address] Zurdo Turner APRN, DENTAL SALES REPRESENTATIVE [address] [place] [address] Medication Refill Social History Tobacco Use Types [...] CDT Gender Identity Female 12/26/2022 7:15 PM TRANSFUSION NURSE Sexual Orientation Straight 12/26/2022 7: 15 PM TRANSFUSION NURSE documented as of this encounter Plan of Treatment Upcoming Encounters Date Type Department Care Team (Late st Contact Info) Description 02/26/2025 11:30 AM TRANSFUSION NURSE [facility] [place] [address] [place] [address] Chel Mcfarlane, SNOUT PULLER, AUDITING CLERK [address] [place] [address] 03/30/2025 2:15 PM TRANSFUSION NURSE [facility] [address] [place] [address] Jackson Kim MD [address] [place] [address] documented as of this encounter Visit Diagnoses Diagnosis Acute cystitis without hematuria Acute cystitis documented in this encounter Additional Health Concerns Assessment Noted Time PHQ-9 Depression Total Score: 0 06/22/19 21 10:03 AM CDT documented as of this encounter Care Teams Mesmerist Relationship Specialty Start Date End Date Sheldon Driscoll MD [address] [place] [address] PCP - General Internal Medicine 05/25/22 10/18/23 Citlalli Santana, SNOUT PULLER, DENTAL SALES REPRESENTATIVE [address] [place] [address] PCP - General Certified Nurse Practitioner 10/19/23 Zurdo Turner APRN, DENTAL SALES REPRESENTATIVE [address] [place] [address] Nurse Practitioner Urology 04/04/22 Daniel Deleon MD [address] [place] [address] Consulting Physician Gastroenterology 12/29/21 Stephanie Grimaldo MD [address] [place] [address] Consulting Physician Obstetrics & Gynecology 10/17/23 Amita Smith MD [address] [place] [address] Consulting Physician Reproductive Endocrinology 10/17/23 Chel Mcfarlane APRN, AUDITING CLERK [address] [place] [address] Nurse Practitioner Advanced Practice Nurse 04/14/24 Jackson Kim MD [address] [place] [address] Consulting Physician Pulmonary Disease 04/29/24 documented as of this encounter
--- OUTSIDE RECORDS SUMMARY | 2025-01-21 21:24 | XMS_ITS | Patient Health Record ---
Author Organization [facility] Address [address] [facility] [place] [id number] Support Name Relationship Address Phone YARI WHEELER Guarantor Unknown Reason For Referral No Information Plan Of Treatment No Information
[2025-01-21] MEDS: cefTRIAXone 2 GM in SODIUM CHLORIDE 0.9% IV 100 ML 200 ML IVPB (21:50)
[2025-01-21 21:57] LABS: Trichomonas Vag PCR NOT DETECTED (NOT DETECTE)
[2025-01-21] MEDS: DOXYCYCLINE IV 100 MG in SODIUM CHLORIDE 0.9% IV 100 ML IVPB (22:35)
[2025-01-21] MEDS: metroNIDAZOLE 500 MG/ISO 100ML 500 MG/100 ML BAG 100 MG IVPB (22:35)
[2025-01-21 22:45] VITALS: BP 126/89; PULSE 98; RESP 16; O2SAT 100
[2025-01-21] MEDS: SODIUM CHLORIDE 0.9% IV 1,000 ML 125 ML IV CONT (23:32)
[2025-01-22] VITALS (8 sets, daily range): BP systolic 107–132; BP diastolic 47–92; PULSE 97–116; RESP 18–20; TEMP 36.1–36.6; O2SAT 98–99; BMI 40.1
--- NOTE | 2025-01-22 00:14 | WPCEDHO ---
ED Hand Off Checklist All vitals saved: Y IV Site documented: Y All med administrations documented: Y Triage Note Triage Note Pt to Ed via POV. Pt states she 01/21/25 19:23 has been having medial abdominal pain that pinches left side. pt states she can feel the pain in her vagina and uterus. pt states she has irritation when she goes to the restroom. pt states she feels like she has a franky up my butt. Pt states she also has vaginal bleeding that started two days ago when she was having intercourse. Pt states she went through two towels and had clots. Pt states her last period was January 06. Pt is ambulatory and is A&ox4. pt states she is spotting at this time. Allergies Penicillins Allergy (Intermediate, Verified 01/21/25 20:30) Rash Active Medications including assessments/comments Sodium Chloride (Normal Saline Iv) 1,000 mls @ 125 mls/hr IV CONT .Q8H YASEMIN Last Admin: 01/21/25 23:32 Dose: 125 mls/hr Documented By: INESSA Infusion/Titration Document 01/21/25 23:32 INESSA (Rec: 01/21/25 23:32 INESSA [id number]) Intake IV Site Peripheral Access Right Antecubital Container Volume 1,000 Waste Amount 0 Dosing Infusion Rate 125 Cumulative Dose Not Applicable Increase/Decrease Started Elapsed Time Elapsed Time ( 0m minutes) Administered/Completed Medications Discontinued Medications Sodium Chloride (Normal Saline Iv) 1,000 mls @ 999 mls/hr IV CONT .Q1H1M STA Stop: 01/21/25 21:24 Last Infusion: 01/21/25 22:19 Dose: Infused Documented By: Admin: 01/21/25 20:56 Dose: 999 mls/hr Documented By: CARLOS Sodium Chloride (Normal Saline Iv) 1,000 mls @ 999 mls/hr IV CONT .Q1H1M STA Stop: 01/21/25 21:27 Last Infusion: 01/21/25 22:42 Dose: Infused Documented By: Admin: 01/21/25 20:56 Dose: 999 mls/hr Documented By: CARLOS Sodium Chloride (Normal Saline Iv) 500 mls @ 999 mls/hr IV CONT .Q31M STA Stop: 01/21/25 20:57 Last Infusion: 01/21/25 22:19 Dose: Infused Documented By: Admin: 01/21/25 20:56 Dose: 999 mls/hr Documented By: CARLOS Doxycycline Hyclate 100 mg/ (Sodium Chloride) 100 mls @ 100 mls/hr IVPB ONCE ONE Stop: 01/21/25 22:49 Last Infusion: 01/21/25 23:35 Dose: Infused Documented By: Admin: 01/21/25 22:35 Dose: 100 mls/hr Documented By: INESSA Ceftriaxone Sodium 2 gm/ (Sodium Chloride) 100 mls @ 200 mls/hr IVPB ONCE ONE Stop: 01/21/25 22:19 Last Infusion: 01/21/25 22:20 Dose: Infused Documented By: Admin: 01/21/25 21:50 Dose: 200 mls/hr Documented By: INESSA Metronidazole (Flagyl 500 Mg/Iso Soln 100 Ml) 500 mg in 100 mls @ 100 mls/hr IVPB ONCE ONE Stop: 01/21/25 22:49 Last Infusion: 01/21/25 23:35 Dose: Infused Documented By: Admin: 01/21/25 22:35 Dose: 100 mls/hr Documented By: INESSA Morphine Sulfate (Morphine Sulfate (*Crx) 4 Mg/Ml Inj) 4 mg IV PUSH ONCE STA Stop: 01/21/25 20:25 Last Admin: 01/21/25 20:56 Dose: 4 mg Documented By: CARLOS Ondansetron HCl (Ondansetron Inj 4 Mg/2 Ml Vial) 4 mg IV PUSH ONCE STA Stop: 01/21/25 20:25 Last Admin: 01/21/25 20:56 Dose: 4 mg Documented By: CARLOS Interventions/Assessments IV / Saline Lock, Insert Start: 01/21/25 19:43 Freq: STAT Status: Active Protocol: Document 01/21/25 20:03 CRISTINE (Rec: 01/21/25 20:03 CRISTINE [id number]) IV Assessment Peripheral Access Right Antecubital IV Catheter Access Initiated IV Insertion Date 01/21/25 IV Insertion Time 20:03 Catheter Gauge 20 IV Site Assessment WNL IV Care and WNL Maintenance PA: Gastrointestinal Assessment Start: 01/21/25 19:18 Freq: Status: Active Protocol: Document 01/21/25 21:22 INESSA (Rec: 01/21/25 21:23 HNK [id number]) GI Assessment Gastrointestinal Nausea,Pain Symptoms Description Soft,Tender Pattern Normal Flatus Present Gastrointestinal LLQ abd pain since this am. Additional Comments Last Vital Signs Temperature 97.4 F L 01/21/25 19:23 Pulse Rate 116 H 01/22/25 00:00 Respiratory Rate 20 01/22/25 00:00 Pulse Oximetry 98 01/22/25 00:00 Blood Pressure 112/73 01/22/25 00:00 Blood Pressure Mean 86 01/22/25 00:00 Oxygen Delivery Room Air 01/21/25 19: Weight 98.18 kg 01/21/25 19:23 Last Result - Abnormals Only WBC 11.3 K/mm3 (4.5-10.0) H 01/21/25 20:02 MPV 11.2 fl (7.4-10.4) H 01/21/25 20:02 Neut % (Auto) 77.0 % (45.5-73.1) H 01/21/25 20: Lymph % (Auto) 16.3 % (18.3-44.2) L 01/21/25 20:02 [place] # (Auto) 0.7 K/mm3 (0.1-0.6) H 01/21/25 20:02 Abs Immat Gran (auto) 0.05 K/mm3 (0.00-0.031) H 01/21/25 20:02 Absolute Neuts (auto) 8.7 K/mm3 (1.3-6.7) H 01/21/25 20:02 Sodium 132 mmol/L (137-145) L 01/21/25 20:02 BUN 19 mg/dL (7-17) H 01/21/25 20:02 C-Reactive Protein 2.4 mg/dL (<1.0) H 01/21/25 20:02 Most Recent Suicide Severity Rating Suicide Severity Rating NO RISK INDICATED 01/21/25 21:22
--- NOTE | 2025-01-22 01:13 | ADMGEN ---
This patient, Sanford Cedeno, was admitted to [facility] Surg Room 311-01. Patient/family oriented to hospital policies and general routines including ID bracelet, bed and alarms, visiting hours, pain management, procedures, bathroom and other care routines, personal items, smoking policy, room service/diet, and visiting hours. Information on how to activate the Rapid Response Team has been discussed. Patient/Family are encouraged to report perceived risks to care and to ask questions if they do not understand what they are told or what they should do.
[2025-01-22] MEDS: MORPHINE SULFATE (*CRX) 4 MG/ML INJ 2 MG IV PUSH ×2 (01:29→11:22)
[2025-01-22] MEDS: ONDANSETRON INJ 4 MG/2 ML VIAL IV PUSH ×2 (01:30→08:16)
[2025-01-22] MEDS: DOXYCYCLINE IV 100 MG in SODIUM CHLORIDE 0.9% IV 100 ML IVPB (08:16)
[2025-01-22] MEDS: SODIUM CHLORIDE 0.9% IV 1,000 ML 125 ML IV CONT (08:17)
[2025-01-22] MEDS: metroNIDAZOLE 500 MG/ISO 100ML 500 MG/100 ML BAG 100 MG IVPB (12:26)
--- NOTE | 2025-01-22 13:23 | PM.IMHP2 ---
H&P: HPI History of Present Illness Date/Time: 01/22/25 13:23 Chief Complaint: The patient is a 44-year-old female who presents emergency department with severe pelvic cramping. Patient is known to have a an isthmocele. She is admitted for observation. There was a question possible infection given her CRP and her white count. She was started on IV antibiotics. Her imaging was equivocal. But suggestive of fecal impaction and thickened endometrium. Appropriate about duration the patient ready for discharge. She was afebrile. Her pain is diminished. She would like to be discharged home. She will have short-term follow-up. She has a editor school photograph that plans to deal with her uterine issues. Review of Systems Review of Systems: All systems reviewed & are unremarkable except as noted in HPI and below Constitutional: Constitutional: Denies chills, Denies fatigue, Denies fever(s) and Denies weakness Eyes: Eyes: Denies blurry vision, Denies change in vision, Denies loss of peripheral vision, Denies loss of vision, Denies other visual disturbances and Denies eye pain ENT: Denies vertigo, Denies dizziness, Denies hearing loss, Denies mouth pain, Denies nasal obstruction, Denies neck mass and Denies neck pain Cardiovascular: Cardiovascular: Denies chest pain, Denies diaphoresis, Denies syncope, Denies leg edema and Denies dyspnea Respiratory: Respiratory: Denies chest congestion, Denies cough, Denies hemoptysis, Denies dyspnea and Denies wheezing Gastrointestinal: Gastrointestinal: Denies abdominal pain, Denies constipation, Denies diarrhea, Denies nausea and Denies vomiting Genitourinary: Genitourinary: Denies hematuria, Denies change in libido, Denies nocturia, Denies genital lesions, Denies flank pain and Denies urinary urgency Musculoskeletal: Musculoskeletal: Denies abnormal gait, Denies back pain, Denies myalgias, Denies arthralgias, Denies joint swelling, Denies muscle weakness and Denies neck pain Integumentary/Breasts: Skin/Breast: Denies swelling, Denies breast pain, Denies breast mass, Denies dry skin, Denies nipple discharge, Denies unusual bruising and Denies jaundice Neurologic: Denies Neuro-related abnormal movements, Denies Abnormal speech present, Denies abnormal gait, Denies behavioral changes, Denies confusion, Denies vertigo, Denies dizziness, Denies syncope, Denies loss of vision, Denies memory loss, Denies convulsions and Denies weakness Psychiatric: Psychiatric: Denies abnormal sleep pattern, Denies behavioral changes, Denies change in libido, Denies confusion, Denies depression, Denies anhedonia and Denies memory loss Endocrine: Endocrine: Reports no additional endocrine complaints, Denies change in libido and Denies fatigue Hematologic/Lymphatic: Hematologic/Lymphatic: Reports no additional hematologic/lymphatic complaints Allergic/Immunologic: Allergic/Immunologic: Reports no additional allergic/immunologic complaints and Denies wheezing PMFSH Social History Social History Smoking status: Never smoker Second hand tobacco smoke exposure: No Alcohol intake: current Drinks per week: 1 Substance use: never Lack of Transportation: No Lack of Food: Never True Current Housing: I Have Housing Concerned About Future Housing: No Difficulty Paying Gas/Electric Bills: No Difficulty Paying for Meds: No Currently Unemployed: No Education: High School Diploma/GED Difficulty w/ Childcare or Family Care: No Spiritual care concerns: No Meds Home Medications and Allergies Home Medications ?Medication ?Instructions ?Recorded ?Confirmed ?Type albuterol sulfate 90 mcg/actuation 2 puff inhalation Q4H PRN 01/22/25 01/22/25 History aerosol inhaler shortness of breath or wheezing atorvastatin 10 mg tablet 10 mg PO QHS 01/22/25 01/22/25 History ferrous sulfate 325 mg (65 mg 325 mg PO QAM 01/22/25 01/22/25 History iron) tablet ibuprofen 800 mg tablet 800 mg PO Q8H PRN pain 01/22/25 01/22/25 History levothyroxine 25 mcg tablet 25 mcg PO DAILY@0630 01/22/25 01/22/25 History norethindrone (contraceptive) 0.35 0.35 mg PO DAILY 01/22/25 01/22/25 History mg tablet (Incassia) Held on 01/22/25. Instructions: Start on day 1 of menses ondansetron 4 mg disintegrating 4 mg PO Q6H PRN nausea and vomiting 01/22/25 01/22/25 History tablet vit no.95-ferrous 1 tablet PO DAILY 01/22/25 01/22/25 History fumarate 28 mg-folic acid 800 mcg tablet () rimegepant 75 mg disintegrating 75 mg PO Q48H PRN migraine headache 01/22/25 01/22/25 History tablet (Nurtec ODT) rizatriptan 10 mg tablet 10 mg PO Q2H PRN migraine headache 01/22/25 01/22/25 History ropinirole 1 mg tablet 1 mg PO QHS 01/22/25 01/22/25 History sumatriptan succinate 25 mg tablet 25 mg PO Q2H PRN migraine headache 01/22/25 01/22/25 History topiramate 25 mg tablet 25 mg PO QHS 01/22/25 01/22/25 History Allergies Allergy/AdvReac Type Severity Reaction Status Date / Time Penicillins Allergy Intermediate yeast Verified 01/22/25 01:13 infection Vital Signs Vital Signs - 24 hr 01/21/25 19:23 01/21/25 20:32 01/21/25 22:45 Temperature 97.4 F L Pulse Rate 112 H 109 H 98 Respiratory Rate 18 18 16 Blood Pressure 146/95 H 152/95 H 126/89 Pulse Oximetry 99 100 100 Oxygen Delivery Room Air 01/22/25 00:00 01/22/25 01:14 01/22/25 02:50 Temperature 97 F L Pulse Rate 116 H 115 H 115 H Respiratory Rate 20 18 18 Blood Pressure 112/73 107/47 L Pulse Oximetry 98 98 98 Oxygen Delivery Room Air 01/22/25 04:00 01/22/25 05:31 01/22/25 08:00 Temperature 97.9 F Pulse Rate 111 H 110 H Respiratory Rate 18 Blood Pressure 113/69 Pulse Oximetry 99 Oxygen Delivery Room Air 01/22/25 08:00 Temperature Pulse Rate 97 Respiratory Rate Blood Pressure Pulse Oximetry Oxygen Delivery Exam Const: General: cooperative, healthy appearing, comfortable and no acute distress Orientation/consciousness: oriented to person, oriented to place and oriented to time HENMT: Head: normal to inspection Ears: external ears normal Face/Nose/Sinus: Normal external nose present and normal facial exam Face and sinus: normal facial exam Eyes: General: appearance normal, both eyes and all related structures Neck: Neck: normal visual inspection, trachea midline and supple Resp: Auscultation: clear to auscultation bilaterally, no crackles, no rales, no rhonchi and no wheezes Cardio: Rate: regular rate Rhythm: regular rhythm Heart sounds: no click, no murmurs and no rubs GI: GI Palp: No abdominal tenderness, No Soft to palpation, No Tenderness to palpation present (GI) and No Palpable mass present Auscultation: normal bowel sounds Skin: General skin exam: normal color and no rashes or lesions noted Neuro: General: oriented to person, oriented to place and oriented to time Extrem: General: normal to inspection, no joint enlargement, no clubbing, cyanosis or edema, no pedal edema and no calf tenderness Psych: Appearance: grossly normal Mental Status: mental status grossly normal Speech and movement: Normal speech and movement present Results Labs Labs: Short CBC 01/21/25 Range/Units 20:02 WBC 11.3 H (4.5-10.0) K/mm3 Hgb 12.9 (12.0-15.0) g/dL Hct 39.3 (37.0-47.0) % Plt Count 221 (150-375) k/mm3 BMP 01/21/25 20:02 Sodium 132 L Potassium 4.1 Chloride 104 Carbon Dioxide 23 BUN 19 H Creatinine 0.77 Glucose 91 Calcium 9.1 Liver Function 01/21/25 Range/Units 20:02 Total Bilirubin 0.4 (0.2-1.3) mg/dL AST 28 (14-36) U/L ALT 23 (6-35) U/L Alkaline Phosphatase 67 (38-126) U/L Albumin 4.5 (3.5-5.1) g/dL Urine 01/21/25 Range/Units 19:45 Urine Color Yellow (Yellow) Urine Appearance Clear (Clear) Urine pH 8.0 (5.0-9.0) Ur Specific [place] 1.028 (1.001-1.035) Urine Protein Negative (Negative) mg/dL Urine Glucose (UA) Negative (Negative) mg/dL Assessment and Plan Assessment and plan (1) Pelvic pain: Code(s): R10.20 - Pelvic and perineal pain unspecified side Status: Acute Assessment and Plan: The patient is a 44-year-old female who presents emergency department with severe pelvic cramping. Patient is known to have a an isthmocele. She is admitted for observation. There was a question possible infection given her CRP and her white count. She was started on IV antibiotics. Her imaging was equivocal. But suggestive of fecal impaction and thickened endometrium. Appropriate about duration the patient ready for discharge. She was afebrile. Her pain is diminished. She would like to be discharged home. She will have short-term follow-up. She has a editor school photograph that plans to deal with her uterine issues.
== END 2025-01-22 15:05 | disposition home or self-care (01) ==
LOC: ANHED 22:16 → ANH3MEDSUR 22:53
PROVIDERS: Admitting Provider Obstetrics & Gynecology; Emergency Provider Student in an Organized Health Care Education/Training Program; Visit Provider Obstetrics & Gynecology
DX: R10.24 Suprapubic pain (principal); R10.20 Pelvic and perineal pain unspecified side; N85.A Isthmocele
CPT/HCPCS: 36415; 74177; 80053; 81003; 81025; 83605; 83690; 83735; 84443; 84703; 85025; 85610; 85730; 86140; 86850; 86900; 86901; 87040; 87491; 87591; 87661; 93005; 96361; 96365; 96367; 96375; 96376; 99285; G0378; J0696; J1836; J2270; J2405; J7030; J7040; Q9967